=== PATIENT | male | born 1955 | race Caucasian/White ===

== ENCOUNTER 2017-04-10 20:29 | Emergency (ER) | payer MEDICAID ==
[2017-04-10 20:46] VITALS: BP 180/106
--- NOTE | 2017-04-10 20:59 | EDM.PDOC ---
ED HPI GENERAL MEDICAL PROBLEM - General Chief Complaint: General Stated Complaint: KIDNEY PROBLEMS Time Seen by Provider: 04/10/17 20:30 Source of Information: Reports: Patient, Family History Limitations: Reports: No Limitations - History of Present Illness INITIAL COMMENTS - FREE TEXT/NARRATIVE: This is a 62-year-old male. He saw his family doctor today who je some blood work on him and the blood work showed that his kidneys were working at 11%. According to the patient prior to this they were working at 28%. He is being followed by Dr. Barr at [facility] in [place] who is a screen maker and he called him tonight and told him to come to the ER and be transported down to [place] for evaluation. The patient states that been monitoring his kidneys for a couple of years now. He does have an artificial aortic valve and he is on Coumadin. His Coumadin level was 3.4 with this blood draw according to the patient as well. He has not been feeling very well lately and he did have a upper respiratory infection last week. He denies any significant nausea or vomiting. He has been urinating blood on and off for quite some time he tells me. I do not have access to the [facility] so I will re-draw some labs on him and then called down to [facility] in [place] and see what they would like me to do. The patient has not been on dialysis in the past. Abdomen Pain Score (Numeric/FACES): 3 - Related Data Allergies Allergy/AdvReac Type Severity Reaction Status Date / Time No Known Allergies Allergy Verified 11/21/14 18:05 Home Meds: Home Meds Albuterol Sulfate [Albuterol Sulfate HFA] 2 puff INH Q4H PRN 11/21/14 [History] Aspirin [Halfprin] 81 mg PO DAILY 11/21/14 [History] Magnesium Oxide 400 mg PO BID 11/21/14 [History] Metoprolol Succinate [Toprol XL] 100 mg PO DAILY 11/21/14 [History] Omeprazole [Prilosec] 20 mg PO DAILY 11/21/14 [History] Warfarin [Coumadin] 5 mg PO SUTUWETHFRSA 11/21/14 [History] Warfarin [Coumadin] 10 mg PO MO 11/21/14 [History] predniSONE [Prednisone] 10 mg PO DAILY 11/21/14 [History] Torsemide 50 mg PO DAILY 01/26/15 [History] Iron Polysaccharide Complex [Poly-Iron] 150 mg PO TID 04/10/17 [History] Mycophenolate Mofetil [Cellcept] 250 mg PO BID 04/10/17 [History] Simvastatin [Zocor] 40 mg PO BEDTIME 04/10/17 [History] Sodium Bicarbonate 650 mg PO BID 04/10/17 [History] Torsemide 50 mg PO ASDIRECTED 04/10/17 [History] Past Medical History Other Cardiovascular History: Aortic valve replacement. Other Gastrointestinal History: Esophageal ulcer Social & Family History - Tobacco Use Smoking Status *Q: Current Every Day Smoker Years of Tobacco use: 45 Used Tobacco, but Quit: No - Alcohol Use Days Per Week of Alcohol Use: 2 Number of Drinks Per Day: 2 Total Drinks Per Week: 4 - Recreational Drug Use Recreational Drug Use: No ED ROS GENERAL - Review of Systems Review Of Systems: See Below Constitutional: Reports: Weakness, Fatigue. Denies: Fever, Chills HEENT: Reports: No Symptoms Respiratory: Reports: Shortness of Breath. Denies: Cough Cardiovascular: Denies: Chest Pain Endocrine: Reports: No Symptoms GI/Abdominal: Denies: Abdominal Pain, Diarrhea, Nausea, Vomiting : Reports: Frequency, Hematuria Musculoskeletal: Reports: No Symptoms Skin: Reports: Other (Chronic skin excoriations) Neurological: Reports: No Symptoms Psychiatric: Reports: No Symptoms ED EXAM, GENERAL - Physical Exam Exam: See Below Exam Limited By: No Limitations General Appearance: Alert, No Apparent Distress, Other (He has a sallow skin appearance) Eye Exam: Bilateral Eye: Normal Inspection Ears: Normal External Exam Nose: Normal Inspection Throat/Mouth: Normal Inspection, Normal Lips, Normal Voice, No Airway Compromise Head: Normocephalic Neck: Supple Respiratory/Chest: No Respiratory Distress, Lungs Clear, Normal Breath Sounds Cardiovascular: Regular Rate, Rhythm, No Murmur, Other (He has the typical click of an artificial valve aortic) GI/Abdominal: Soft, Other (He has some mild lower abdominal soreness on palpation, he is rather large I cannot feel his organs or his bladder at this time, bowel sounds are positive but there are decreased) Back Exam: Full Range of Motion Extremities: Normal Inspection, Normal Range of Motion Neurological: Alert, Oriented Psychiatric: Normal Affect, Normal Mood Skin Exam: Warm, Dry Course - Vital Signs Last Recorded V/S: Last Vital Signs Temp 97.3 F 04/10/17 20:44 Pulse 80 04/10/17 20:44 Resp 20 04/10/17 20:44 BP 180/106 H 04/10/17 20:44 Pulse Ox 93 L 04/10/17 20:44 - Orders/Labs/Meds Labs: Laboratory Tests 04/10/17 04/10/17 04/10/17 Range/Units 21:10 21:10 21:10 WBC 7.80 (4.23-9.07) K/mm3 RBC 2.84 L (4.63-6.08) M/mm3 Hgb 9.1 L (13.7-17.5) gm/L Hct 28.7 L (40.1-51.0) % MCV 101.1 H (79.0-92.2) fl MCH 32.0 (25.7-32.2) pg MCHC 31.7 L (32.2-35.5) g/dl RDW Std Deviation 57.9 H (35.1-43.9) fL Plt Count 104 L (163-337) K/mm3 MPV 12.3 (9.4-12.3) fl Neut % (Auto) 82.3 H (34.0-67.9) % Lymph % (Auto) 6.4 L (21.8-53.1) % Carbon % (Auto) 6.2 (5.3-12.2) % Eos % (Auto) 4.5 (0.8-7.0) Baso % (Auto) 0.3 (0.1-1.2) % Neut # (Auto) 6.43 H (1.78-5.38) K/mm3 Lymph # (Auto) 0.50 L (1.32-3.57) K/mm3 Carbon # (Auto) 0.48 (0.30-0.82) K/mm3 Eos # (Auto) 0.35 (0.04-0.54) K/mm3 Baso # (Auto) 0.02 (0.01-0.08) K/mm3 Manual Slide Review Abnormal smear PT 40.4 H (8.0-13.0) SECONDS INR 3.43 Sodium 143 (136-145) mEq/L Potassium 4.6 (3.5-5.1) mEq/L Chloride 105 (98-107) mEq/L Carbon Dioxide 20 L (21-32) mEq/L Anion Gap 22.6 H (5-15) BUN 124 H (7-18) mg/dL Creatinine 11.3 H (0.7-1.3) mg/dL Est Cr Clr Drug Dosing 6.34 mL/min Estimated GFR (MDRD) 5 (>60) mL/min BUN/Creatinine Ratio 11.0 L (14-18) Glucose 174 H (80-115) mg/dL Calcium 7.1 L (8.5-10.1) mg/dL Magnesium 2.3 (1.8-2.4) mg/dl Total Bilirubin 0.5 (0.2-1.0) mg/dL AST 15 (15-37) U/L ALT 19 (16-63) U/L Alkaline Phosphatase 114 (46-116) U/L Total Protein 7.8 (6.4-8.2) g/dl Albumin 3.3 L (3.4-5.0) g/dl Globulin 4.5 gm/dL Albumin/Globulin Ratio 0.7 L (1-2) - Re-Assessments/Exams Free Text/Narrative Re-Assessment/Exam: 04/10/17 21:09 Bladder scan was done that showed anywhere from 60-90 mL only. 04/10/17 22:[address] Barr as well as Dr. Bernardo the hospitalist at [facility] in [place] and they accept the patient in transport for further evaluation and treatment. I also spoke to the family regarding the transport and regarding his lab work this evening. Departure - Departure Time of Disposition: 22:13 Disposition: DC/Tfer to [facility] 02 Condition: Fair Clinical Impression: Hypocalcemia, Hyperglycemia, Anticoagulated on Coumadin, H/O aortic valve replacement Acute renal failure Qualifiers: Acute renal failure type: unspecified Qualified Code(s): N17.9 - Acute kidney failure, unspecified Anemia in chronic kidney disease Qualifiers: Chronic kidney disease stage: stage 5, not on chronic dialysis Qualified Code(s ): N18.5 - Chronic kidney disease, stage 5; D63.1 - Anemia in chronic kidney disease; D63.1 - Anemia in chronic kidney disease - Discharge Information Referrals: Tito Barr MD [Primary Care Provider] - Forms: ED Department Discharge Additional Instructions: I spoke to Dr. Barr as well as Dr. Bernardo and they accept the patient in transport for further evaluation and treatment ED Communication - ED Communication Date/Time Date: 04/10/17 Time Called: 10:05 - Discussed Case With (1) Discussed Case With (1): Admitting Provider Person/s Notified (1): Dr. Bernardo (Excepts in transport to [facility])
== END 2017-04-10 23:05 ==
LOC: JD.ED 20:29 → SUPCPDRO 20:29 → JD.ED 23:05
DX: N17.9 Acute kidney failure, unspecified (principal); N18.9 Chronic kidney disease, unspecified; D63.1 Anemia in chronic kidney disease; E83.51 Hypocalcemia; R73.9 Hyperglycemia, unspecified; R31.0 Gross hematuria; F17.200 Nicotine dependence, unspecified, uncomplicated; Z95.2 Presence of prosthetic heart valve; Z79.82 Long term (current) use of aspirin; Z79.01 Long term (current) use of anticoagulants; Z79.899 Other long term (current) drug therapy
CPT/HCPCS: 36415; 80053; 81001; 83735; 85025; 85610; 99284; 99285

== ENCOUNTER 2017-05-11 16:23 | Emergency (ER) | payer MEDICAID, OTHER ==
[2017-05-11] MEDS ORDERED: HYDROmorphone 1 MG/ML Syringe IVPUSH ONE ×2 (17:13→17:58)
--- NOTE | 2017-05-11 20:20 | EDM.PDOC ---
ED HPI GENERAL MEDICAL PROBLEM - General Chief Complaint: Upper Extremity Injury/Pain Stated Complaint: FLUIDS NEEDED Time Seen by Provider: 05/11/17 20:14 Source of Information: Reports: Patient, Old Records (clinic records) History Limitations: Reports: No Limitations - History of Present Illness INITIAL COMMENTS - FREE TEXT/NARRATIVE: 62-year-old male presents for pain control for an ultrasound. Patient was seen in clinic. He had labs and an ultrasound (partially) performed. They were unable to perform the remainder of the ultrasound, the distal part his right arm , due to significant pain. Sent over to us for pain control. Patient denies any chest pain, shortness of breath, fevers, numbness or tingling. Patient reports that he first developed pain in the upper extremity on Thursday. He states that he has now developed swelling to the right wrist and elbow. Reports significant pain with any movement the right wrist and elbow. He does have a port on the right side. Patient is currently on Coumadin for history of an artificial aortic valve. INR checked in the clinic was 1.5. 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 He is currently on dialysis. Last dialysis was on Thursday. He is scheduled for dialysis tomorrow. He sees Dr. Barr for nephrology in [place] for his dialysis. Location: Reports: Upper Extremity, Right Right Arm Pain Score (Numeric/FACES): 6 - Related Data Allergies Allergy/AdvReac Type Severity Reaction Status Date / Time No Known Allergies Allergy Verified 05/11/17 17:02 Home Meds: Home Meds Albuterol Sulfate [Albuterol Sulfate HFA] 2 puff INH Q4H PRN 11/21/14 [History] Aspirin [Halfprin] 81 mg PO DAILY 11/21/14 [History] Magnesium Oxide 400 mg PO BID 11/21/14 [History] Metoprolol Succinate [Toprol XL] 100 mg PO DAILY 11/21/14 [History] Omeprazole [Prilosec] 20 mg PO DAILY 11/21/14 [History] Warfarin [Coumadin] 5 mg PO SUTUWETHFRSA 11/21/14 [History] Warfarin [Coumadin] 10 mg PO MO 11/21/14 [History] Iron Polysaccharide Complex [Poly-Iron] 150 mg PO TID 04/10/17 [History] Mycophenolate Mofetil [Cellcept] 250 mg PO BID 04/10/17 [History] Simvastatin [Zocor] 40 mg PO BEDTIME 04/10/17 [History] Allopurinol [Zyloprim] 300 mg PO DAILY 05/11/17 [History] Calcium Acetate [PhosLo] 667 mg PO DAILY 05/11/17 [History] Lisinopril 20 mg PO DAILY 05/11/17 [History] Past Medical History Cardiovascular History: Reports: Hypertension Other Cardiovascular History: Aortic valve replacement. Respiratory History: Reports: Asthma Gastrointestinal History: Reports: GERD Other Gastrointestinal History: Esophageal ulcer Genitourinary History: Reports: Acute Renal Failure Musculoskeletal History: Reports: Other (See Below) Other Musculoskeletal History: right ankle surgery Social & Family History - Tobacco Use Smoking Status *Q: Current Every Day Smoker Years of Tobacco use: 40 Packs/Tins Daily: 1 Used Tobacco, but Quit: No - Caffeine Use Caffeine Use: Reports: Coffee - Alcohol Use Days Per Week of Alcohol Use: 2 Number of Drinks Per Day: 2 Total Drinks Per Week: 4 - Recreational Drug Use Recreational Drug Use: No Review of Systems - Review of Systems Review Of Systems: See Below Respiratory: Denies: Shortness of Breath Cardiovascular: Denies: Chest Pain Musculoskeletal: Reports: Arm Pain (right elbow to wrist), Joint Swelling ( right wrist and elbow) Neurological: Denies: Numbness, Tingling ED EXAM, GENERAL - Physical Exam Exam: See Below Exam Limited By: No Limitations General Appearance: Alert, WD/WN, Mild Distress Throat/Mouth: Normal Inspection, Normal Voice, No Airway Compromise Respiratory/Chest: No Respiratory Distress, Lungs Clear, Normal Breath Sounds Cardiovascular: Normal Peripheral Pulses, Regular Rate, Rhythm, No Murmur Peripheral Pulses: 2+: Radial (R) Extremities: Slow Capillary Refill (>3 sec), Limited Range of Motion (unable to make a fist, flex/extend wrist or flex/extend right elbow), Other (dusky right hand and forearm) Neurological: Alert, Oriented, Normal Cognition Psychiatric: Normal Affect, Normal Mood Skin Exam: Warm, Dry, Increased Warmth (right hand and forearm) Course - Vital Signs Last Recorded V/S: Last Vital Signs Temp 36.7 C 05/11/17 20:37 Pulse 86 05/11/17 18:30 Resp 16 05/11/17 18:30 BP 115/76 05/11/17 18:30 Pulse Ox 88 L 05/11/17 18:30 - Orders/Labs/Meds Orders: Active Orders 24 hr Category Date Time Status Chest 1V Frontal [CR] Stat Exams 05/11/17 20:29 Taken Elbow Min 3V Rt [CR] Stat Exams 05/11/17 20:29 Taken Wrist Comp Min 3V Rt [CR] Stat Exams 05/11/17 20:29 Taken CULTURE BLOOD [BC] Stat Lab 05/11/17 19:24 Received CULTURE BLOOD [BC] Stat Lab 05/11/17 19:36 Received Blood Culture x2 Reflex Set [OM.PC] Stat Oth 05/11/17 18:55 Ordered Labs: Laboratory Tests 05/11/17 05/11/17 05/11/17 Range/Units 19:24 19:24 19:24 WBC 8.28 (4.23-9.07) K/mm3 RBC 3.54 L (4.63-6.08) M/mm3 Hgb 11.4 L (13.7-17.5) gm/L Hct 35.3 L (40.1-51.0) % MCV 99.7 H (79.0-92.2) fl MCH 32.2 (25.7-32.2) pg MCHC 32.3 (32.2-35.5) g/dl RDW Std Deviation 55.1 H (35.1-43.9) fL Plt Count 142 L (163-337) K/mm3 MPV 11.1 (9.4-12.3) fl Neutrophils % (Manual) 80 H (40-60) % Band Neutrophils % 0 (0-10) % Lymphocytes % (Manual) 10 L (20-40) % Atypical Lymphs % 0 % Monocytes % (Manual) 9 (2-10) % Eosinophils % (Manual) 1 (0.8-7.0) % Basophils % (Manual) 0 L (0.2-1.2) Platelet Estimate Adequate Plt Morphology Comment Normal RBC Morph Comment Normal Lactic Acid 0.7 (0.4-2.0) mmol/L C-Reactive Protein 17.4 H* (<1.0) mg/dL Meds: Medications Discontinued Medications Generic Name Dose Route Start Last Admin Trade Name Freq PRN Reason Stop Dose Admin Enoxaparin Sodium 100 mg 05/11/17 21:08 Lovenox SUBCUT 05/11/17 21:09 ONETIME ONE Hydromorphone HCl 1 mg 05/11/17 17:13 05/11/17 17:33 Dilaudid IVPUSH 05/11/17 17:14 1 mg ONETIME ONE Administration Hydromorphone HCl 1 mg 05/11/17 17:58 05/11/17 18:25 Dilaudid IVPUSH 05/11/17 17:59 1 mg ONETIME ONE Administration - Radiology Interpretation Free Text/Narrative:: Right upper extremity venous ultrasound: Duplex and color flow imaging was obtained of the right internal jugular, right internal jugular, right subclavian , right cephalic, right axillary and brachial, right basilic and right radial and ulnar veins. Findings: Thrombus is identified within the internal right jugular vein. Thrombus extends around a catheter with thrombus extending to the superior vena cava. Other veins show normal phasic flow, augmentation and compression. Impression: 1. Thrombus within the right internal jugular vein extending to the superior vena cava and extending around a venous catheter. 2. No other areas of thrombus is seen within the right upper extremity.Right upper extremity venous ultrasound: Duplex and color flow imaging was obtained of the right internal jugular, right internal jugular, right subclavian, right cephalic, right axillary and brachial, right basilic and right radial and ulnar veins. chest xray 1 view shows no acute intrathoracic process. xray of the right wrist shows no acute fractures or dislocations. Hardwear in place. xray of the right elbow shows no acute fractures or dislocations. - Re-Assessments/Exams Free Text/Narrative Re-Assessment/Exam: 05/11/17 18:30 Patient has received 2 mg IV Dilaudid thus far. Still continues to have significant pain and concerns over the ultrasound. I Asked Dr. Durham to come and evaluate the patient with me. He agrees that he needs the ultrasound. He also recommends repeating his CBC and CRP. Concern is infection versus clot. 05/11/17 21:30 Ultrasound report has returned. He has clot in the right IJ and into the SVC. CRP is elevated at 17. White blood cell count is within normal limits 8. Discussed the patient with Dr. Nam, hospitalist ammunition supervisor with [facility] in [place]. He agrees to accept the patient. He asked we give Lovenox 1 mg/kg subcutaneous. The patient would like to go by private vehicle. Dr. Nam does not feel this is appropriate and feels he should be sent by ambulance due to concern of developing a CVA or other complications from the clot. Departure - Departure Time of Disposition: 21:38 Disposition: DC/Tfer to [facility] 02 Condition: Serious Clinical Impression: Right jugular vein thrombosis, H/O aortic valve replacement, Anticoagulated on Coumadin, Chronic kidney disease - Discharge Information Referrals: Shima Cuellar PA [Primary Care Provider] - Forms: ED Department Discharge Additional Instructions: Patient go by ground ambulance to [facility]. Dr. Nam accepting. - My Orders Last 24 Hours: My Active Orders 05/11/17 18:55 Blood Culture x2 Reflex Set [OM.PC] Stat 05/11/17 19:24 CULTURE BLOOD [BC] Stat 05/11/17 19:36 CULTURE BLOOD [BC] Stat 05/11/17 20:29 Chest 1V Frontal [CR] Stat Elbow Min 3V Rt [CR] Stat Wrist Comp Min 3V Rt [CR] Stat - Assessment/Plan Last 24 Hours: My Active Orders 05/11/17 18:55 Blood Culture x2 Reflex Set [OM.PC] Stat 05/11/17 19:24 CULTURE BLOOD [BC] Stat 05/11/17 19:36 CULTURE BLOOD [BC] Stat 05/11/17 20:29 Chest 1V Frontal [CR] Stat Elbow Min 3V Rt [CR] Stat Wrist Comp Min 3V Rt [CR] Stat
[2017-05-11] MEDS ORDERED: Enoxaparin 100 MG/1 ML Syringe SUBCUT ONE (21:08)
[2017-05-11 21:18] VITALS: BP 131/83
[2017-05-11] MEDS ORDERED: Sodium Chloride 0.9% 1,000 ML IV ONE (21:26)
--- NOTE | 2017-05-12 08:05 | CR ---
Right elbow: Four views of the right elbow were obtained. Comparison: No prior elbow exam. Bone densities are seen on the lateral view above the radial head. Findings presumably are due to loose bodies. Joint space narrowing is noted within the radiocapitellar joint. Bony structures are osteopenic. No acute abnormality is definitely appreciated. Mild soft tissue calcifications are seen which appear to be mostly vascular in etiology. Impression: 1. Joint space narrowing and osteopenia. Possible loose bodies and other incidental findings. Diagnostic code #3
--- NOTE | 2017-05-12 08:05 | CR ---
Chest: Portable view of the chest was obtained. Comparison: Prior chest x-ray of 11/21/14. Heart size is normal. Tortuous thoracic aorta is seen. Sternotomy wires are noted. Right sided dialysis catheter is seen. Lungs are clear. Impression: 1. Nothing acute is identified on portable chest x-ray. Diagnostic code #1
--- NOTE | 2017-05-12 08:05 | CR ---
Right wrist: Four views of the right wrist are obtained utilizing portable technique. Comparison: No prior study. Soft tissue swelling is identified. Two screws are identified within the distal ulna affixing an old healed fracture. Fairly severe degenerative change is noted within the CMC joint of the thumb. Mild joint space narrowing is noted off the distal navicular bone. Bony structures are osteopenic. No acute fracture or dislocation is identified. Impression: 1. Fairly severe degenerative change at the CMC joint of the thumb. 2. Soft tissue swelling and other incidental findings. No acute bony abnormality is identified. Diagnostic code #2
== END 2017-05-11 21:50 ==
LOC: JD.ED 16:23
DX: I82.C11 Acute embolism and thrombosis of right internal jugular vein (principal); F17.210 Nicotine dependence, cigarettes, uncomplicated; I12.9 Hypertensive chronic kidney disease with stage 1 through stage 4 chronic kidney disease, or unspecified chronic kidney disease; N18.9 Chronic kidney disease, unspecified; J45.909 Unspecified asthma, uncomplicated; Z95.2 Presence of prosthetic heart valve; Z79.01 Long term (current) use of anticoagulants; Z79.899 Other long term (current) drug therapy; Z99.2 Dependence on renal dialysis
CPT/HCPCS: 36415; 71010; 73080; 73110; 83605; 85025; 86140; 87040; 96372; 96374; 96376; 99285; J1170; J1650; J7040; 99284

== ENCOUNTER 2020-07-15 13:31 | Emergency (ER) | payer MEDICARE, BC ==
--- NOTE | 2020-07-15 14:09 | EDM.PDOC ---
ED HPI GENERAL MEDICAL PROBLEM - General Chief Complaint: General Stated Complaint: DIZZY Time Seen by Provider: 07/15/20 13:38 Source of Information: Reports: Patient, RN Notes Reviewed History Limitations: Reports: No Limitations - History of Present Illness INITIAL COMMENTS - FREE TEXT/NARRATIVE: Patient is a 65-year-old male presenting to the emergency department with compl aints of orthostasis which has been occurring since he dialyzed on Thursday. Patient is an end-stage renal disease and dialyzes Wednesdays and Fridays. States after dialysis on Thursday is when his symptoms began. He is not dizzy when lying down, however, upon standing and ambulating he becomes quite dizzy and has to sit down after a couple steps. He has not fallen or had any syncopal episodes. He verbalizes that they were not able to remove as much fluid from them as they normally do on Thursday due to low blood pressures. He states that he thinks he took off a pound or a pound and a half with a normal intake of 2 to 2-1/2 pounds of fluid. He has had low hemoglobins in the past which required blood transfusions and he is concerned that this could be the cause of his symptoms right now. States he does feel short of breath but this is somewhat chronic for him. He does have a history of asthma and states he used his albuterol inhaler shortly before coming to the ER. It did help with his shortness of breath. He denies any chest pain or headaches. - Related Data Allergies Allergy/AdvReac Type Severity Reaction Status Date / Time No Known Allergies Allergy Verified 07/15/20 13:45 Home Meds: Home Meds Albuterol Sulfate [Albuterol Sulfate HFA] 2 puff INH Q4H PRN 11/21/14 [History] Aspirin [Halfprin] 81 mg PO DAILY 11/21/14 [History] Magnesium Oxide 400 mg PO BID 11/21/14 [History] Metoprolol Succinate [Toprol XL] 100 mg PO DAILY 11/21/14 [History] Omeprazole [Prilosec] 20 mg PO DAILY 11/21/14 [History] Warfarin [Coumadin] 5 mg PO SUTUWETHFRSA 11/21/14 [History] Simvastatin [Zocor] 40 mg PO BEDTIME 04/10/17 [History] Allopurinol [Zyloprim] 300 mg PO DAILY 05/11/17 [History] Calcium Acetate [PhosLo] 667 mg PO DAILY 05/11/17 [History] Lisinopril 20 mg PO DAILY 05/11/17 [History] Metoprolol Succinate [Toprol XL] 12.5 mg PO DAILY #30 tab.er 07/15/20 [Rx] Past Medical History HEENT History: Reports: Impaired Vision Cardiovascular History: Reports: Hypertension Other Cardiovascular History: Aortic valve replacement. Respiratory History: Reports: Asthma Gastrointestinal History: Reports: GERD Other Gastrointestinal History: Esophageal ulcer Genitourinary History: Reports: Acute Renal Failure Musculoskeletal History: Reports: Other (See Below) Other Musculoskeletal History: right ankle surgery - Infectious Disease History Infectious Disease History: Reports: Chicken Pox - Past Surgical History Cardiovascular Surgical History: Reports: Valve Replacement Other Cardiovascular Surgeries/Procedures: 1995, 2018 Social & Family History - Tobacco Use Tobacco Use Status *Q: Current Every Day Tobacco User Years of Tobacco use: 50 Packs/Tins Daily: 1 - Caffeine Use Caffeine Use: Reports: Coffee - Recreational Drug Use Recreational Drug Use: No ED ROS GENERAL - Review of Systems Review Of Systems: See Below Constitutional: Reports: Weakness. Denies: Fever, Chills HEENT: Reports: No Symptoms Respiratory: Reports: Shortness of Breath. Denies: Cough Cardiovascular: Reports: Lightheadedness. Denies: Chest Pain, Palpitations, Syncope Endocrine: Reports: No Symptoms GI/Abdominal: Reports: No Symptoms : Reports: No Symptoms Musculoskeletal: Reports: No Symptoms Skin: Reports: No Symptoms Neurological: Reports: Dizziness. Denies: Headache Psychiatric: Reports: No Symptoms Hematologic/Lymphatic: Reports: No Symptoms Immunologic: Reports: No Symptoms ED EXAM, GENERAL - Physical Exam Exam: See Below General Appearance: Alert, WD/WN, No Apparent Distress Respiratory/Chest: No Respiratory Distress, Lungs Clear, No Accessory Muscle Use, Chest Non-Tender, Wheezing (faint expiratory) Cardiovascular: Normal Peripheral Pulses, Regular Rate, Rhythm, No Gallop, No JVD, No Murmur, No Rub, Other (trace BLE edema) GI/Abdominal: Normal Bowel Sounds, Soft, Non-Tender, No Organomegaly, No Di stention, No Abnormal Bruit, No Mass Neurological: Alert, Oriented, CN II-XII Intact, Normal Cognition, Normal Gait, Normal Reflexes, No Motor/Sensory Deficits Psychiatric: Normal Affect, Normal Mood Skin Exam: Warm, Dry, Intact, Normal Color, No Rash Course - Vital Signs Last Recorded V/S: Last Vital Signs Temp 98.5 F 07/15/20 18:35 Pulse 56 L 07/15/20 18:35 Resp 21 H 07/15/20 18:35 BP 86/53 L 07/15/20 18:35 Pulse Ox 93 L 07/15/20 18:35 - Orders/Labs/Meds Orders: Active Orders 24 hr Category Date Time Status Chest 1V Frontal [CR] Stat Exams 07/15/20 14:02 Taken EKG 12 Lead [EK] Stat Ther 07/15/20 13:46 Ordered Labs: Laboratory Tests 07/15/20 07/15/20 07/15/20 Range/Units 13:54 13:54 13:54 WBC (4.23-9.07) K/mm3 RBC (4.63-6.08) M/mm3 Hgb (13.7-17.5) gm/dl Hct (40.1-51.0) % MCV (79.0-92.2) fl MCH (25.7-32.2) pg MCHC (32.2-35.5) g/dl RDW Std Deviation (35.1-43.9) fL Plt Count (163-337) K/mm3 MPV (9.4-12.3) fl Neut % (Auto) (34.0-67.9) % Lymph % (Auto) (21.8-53.1) % [place] % (Auto) (5.3-12.2) % Eos % (Auto) (0.8-7.0) Baso % (Auto) (0.1-1.2) % Neut # (Auto) (1.78-5.38) K/mm3 Lymph # (Auto) (1.32-3.57) K/mm3 [place] # (Auto) (0.30-0.82) K/mm3 Eos # (Auto) (0.04-0.54) K/mm3 Baso # (Auto) (0.01-0.08) K/mm3 Manual Slide Review PT 18.5 H (9.7-12.0) SECONDS INR 1.75 Sodium (136-145) mEq/L Potassium (3.5-5.1) mEq/L Chloride (98-107) mEq/L Carbon Dioxide (21-32) mEq/L Anion Gap (5-15) BUN (7-18) mg/dL Creatinine (0.7-1.3) mg/dL Est Cr Clr Drug Dosing mL/min Estimated GFR (MDRD) (>60) mL/min BUN/Creatinine Ratio (14-18) Glucose (80-115) mg/dL Calcium (8.5-10.1) mg/dL Magnesium (1.8-2.4) mg/dl Total Bilirubin (0.2-1.0) mg/dL AST (15-37) U/L ALT (16-63) U/L Alkaline Phosphatase (46-116) U/L Troponin I 0.100 H* (0.00-0.056) ng/mL C-Reactive Protein (<1.0) mg/dL NT-Pro-B Natriuret Pep 75393 H (0-125) pg/mL Total Protein (6.4-8.2) g/dl Albumin (3.4-5.0) g/dl Globulin gm/dL Albumin/Globulin Ratio (1-2) 07/15/20 07/15/20 Range/Units 13:57 13:57 WBC 6.07 (4.23-9.07) K/mm3 RBC 2.32 L (4.63-6.08) M/mm3 Hgb 8.1 L (13.7-17.5) gm/dl Hct 27.9 L (40.1-51.0) % MCV 120.3 H D (79.0-92.2) fl MCH 34.9 H (25.7-32.2) pg MCHC 29.0 L (32.2-35.5) g/dl RDW Std Deviation 74.6 H (35.1-43.9) fL Plt Count 80 L (163-337) K/mm3 MPV 12.1 (9.4-12.3) fl Neut % (Auto) 77.1 H (34.0-67.9) % Lymph % (Auto) 11.2 L (21.8-53.1) % [place] % (Auto) 6.8 (5.3-12.2) % Eos % (Auto) 3.8 (0.8-7.0) Baso % (Auto) 0.3 (0.1-1.2) % Neut # (Auto) 4.68 (1.78-5.38) K/mm3 Lymph # (Auto) 0.68 L (1.32-3.57) K/mm3 [place] # (Auto) 0.41 (0.30-0.82) K/mm3 Eos # (Auto) 0.23 (0.04-0.54) K/mm3 Baso # (Auto) 0.02 (0.01-0.08) K/mm3 Manual Slide Review Abnormal smear PT (9.7-12.0) SECONDS INR Sodium 144 (136-145) mEq/L Potassium 4.5 (3.5-5.1) mEq/L Chloride 102 (98-107) mEq/L Carbon Dioxide 30 (21-32) mEq/L Anion Gap 16.5 H (5-15) BUN 48 H (7-18) mg/dL Creatinine 7.7 H (0.7-1.3) mg/dL Est Cr Clr Drug Dosing 8.94 mL/min Estimated GFR (MDRD) 7 (>60) mL/min BUN/Creatinine Ratio 6.2 L (14-18) Glucose 107 (80-115) mg/dL Calcium 8.7 (8.5-10.1) mg/dL Magnesium 2.0 (1.8-2.4) mg/dl Total Bilirubin 0.9 (0.2-1.0) mg/dL AST 24 (15-37) U/L ALT 27 (16-63) U/L Alkaline Phosphatase 135 H (46-116) U/L Troponin I (0.00-0.056) ng/mL C-Reactive Protein 5.7 H* (<1.0) mg/dL NT-Pro-B Natriuret Pep (0-125) pg/mL Total Protein 6.4 (6.4-8.2) g/dl Albumin 3.0 L (3.4-5.0) g/dl Globulin 3.4 gm/dL Albumin/Globulin Ratio 0.9 L (1-2) Meds: Medications Discontinued Medications Generic Name Dose Route Start Last Admin Trade Name Freq PRN Reason Stop Dose Admin Albumin Human 12.5 gm in 50 mls @ 100 mls/hr 02/14/21 15:05 07/15/20 16:02 Flexbumin 25% IV 07/15/20 15:34 100 mls/hr ONETIME ONE Administration Albumin Human 12.5 gm in 50 mls @ 100 mls/hr 07/15/20 15:06 07/15/20 16:00 Flexbumin 25% IV 07/15/20 15:35 100 mls/hr ONETIME ONE Administration Sodium Chloride 150 mls @ 500 mls/hr 07/15/20 17:18 07/15/20 17:45 Normal Saline IV 07/15/20 17:35 500 mls/hr NOW STA Administration - Re-Assessments/Exams Free Text/Narrative Re-Assessment/Exam: 07/15/20 15:39 Hematology was significant for hemoglobin low at 8.1, anion gap 16.5, BUN 48, creatinine 7.7, troponin 0 0.100, CRP 5.7, proBNP 22,837, albumin low at 3.0. Chest x-ray shows some mild pulmonary vascular congestion. Patient is wheezy to auscultation. Patient continues to be hypotensive with last blood pressure being 89/50. Given that he has signs of congestive heart failure but is also hypotensive, case was discussed with the asphalt paving foreman on-call at [facility], Dr. Gagnon. His recommendation was to have the patient stop his lisinopril and decrease metoprolol XL to 12.5 mg daily. He also recommended that we give him a albumin 25 g in 100 mils now. If his blood pressures are still low, he states that we could give him 150 mils of normal saline but no more than that. He recommends that he monitor his blood pressures at home and report to hemodialysis as scheduled tomorrow. They will recheck his blood pressure at that time and consult with Dr. Navarro if needed. Discussed this plan with the patient and his daughter and they are in agreement. I have ordered albumin 25 g in 100 mL to be given now. Patient has already taken his lisinopril and metoprolol this morning, therefore he will begin the changes tomorrow. 07/15/20 18:03 Patient is feeling somewhat better after the albumin. He was able to get up and walk with minimal dizziness. States it is better than it was before coming to the ER but he does still feel little dizzy. Blood pressure was 85/49. We will give him the 150 mils of normal saline as recommended by Dr. Gagnon and then plan to discharge him home with follow-up with dialysis tomorrow morning. 07/15/20 18:06 Patient has completed the 150 mill infusion of normal saline. Blood pressure 86/53. We will discharge him home with instructions to stop lisinopril, change metoprolol to 12.5 mg daily, and follow-up with dialysis as scheduled tomorrow. He is in agreement with this plan. Discharge instructions as documented. Departure - Departure Time of Disposition: 18:04 Disposition: Home, Self-Care 01 Condition: Good Clinical Impression: Hypoalbuminemia Hypotension Qualifiers: Hypotension type: hemodialysis-associated hypotension Qualified Code(s): I95.3 - Hypotension of hemodialysis Chronic kidney disease Qualifiers: Chronic kidney disease stage: on chronic dialysis Qualified Code(s): N18.6 - End stage renal disease Anemia in chronic kidney disease Qualifiers: Chronic kidney disease stage: stage 5, not on chronic dialysis Qualified Code(s): N18.5 - Chronic kidney disease, stage 5 - Discharge Information *PRESCRIPTION DRUG MONITORING PROGRAM REVIEWED*: No *COPY OF PRESCRIPTION DRUG MONITORING REPORT IN PATIENT LEONARDA: No Prescriptions: Metoprolol Succinate [Toprol XL] 12.5 mg PO DAILY #30 tab.er Instructions: Hypotension, [id number], End-Stage Kidney Disease Referrals: Kentrell Kraft MD [Primary Care Provider] - Tito Barr MD [Ordering Only Provider] - Forms: ED Department Discharge Additional Instructions: You were seen in the emergency department today for dizziness upon standing since Thursday. Work-up in the ER included blood work, EKG of your heart, and chest x-ray. Your case was discussed with the asphalt paving foreman on-call at [facility], Dr. Gagnon. Your blood pressure was found to be low, however, since you have end-stage kidney failure and there are signs that you may have congestive heart failure, it was decided that giving you a significant amount of fluid would not be in your best interest. Dr. Gagnon recommended that you received albumin in the emergency department, that you stop your lisinopril blo od pressure medication and that your metoprolol be decreased to 12.5 mg daily. While in the ER, you did receive the infusion of albumin. Recommend that you do not take your lisinopril any longer. Also stop your metoprolol 100 mg daily and take the metoprolol 12.5 mg daily tab that has been prescribed to you. This prescription was sent to [facility]. Report to dialysis tomorrow as scheduled. They should reevaluate your blood pressure and consult with Dr. Barr for orders as needed. I would also recommend that you check your blood pressures at home daily and keep a log of these readings. If you experience any new or worsening symptoms of concern, please do not hesitate to return to the emergency department for reevaluation. Sepsis Event Note (ED) - Evaluation Sepsis Screening Result: No Definite Risk - Focused Exam Vital Signs: Vital Signs Temp Pulse Resp BP Pulse Ox 07/15/20 18:35 98.5 F 56 L 21 H 86/53 L 93 L 07/15/20 18:11 86/53 L 07/15/20 13:42 97.4 F 66 18 83/50 L 95 - My Orders Last 24 Hours: My Active Orders 07/15/20 13:46 EKG 12 Lead [EK] Stat 07/15/20 14:02 Chest 1V Frontal [CR] Stat - Assessment/Plan Last 24 Hours: My Active Orders 07/15/20 13:46 EKG 12 Lead [EK] Stat 07/15/20 14:02 Chest 1V Frontal [CR] Stat
[2020-07-15] MEDS ORDERED: Albumin 25% 12.5 GM/50 ML BAG IV ONE ×2 (15:05→15:06)
[2020-07-15 18:12] VITALS: BP 86/53
[2020-07-15 18:50] VITALS: PULSE 56
--- NOTE | 2020-07-16 12:34 | CR ---
Chest: Portable view of the chest was obtained. Comparison: Prior chest x-ray of 05/11/17. Heart is enlarged. Right-sided catheter is seen. Previous sternotomy is noted. Pulmonary vessels are congested. Lungs otherwise are clear. Bony structures are grossly intact. Impression: 1. Findings suspicious for mild CHF. 2. Other findings as noted above. Diagnostic code #3 MTDD
== END 2020-07-15 18:35 | disposition home or self-care (01) ==
LOC: JD.ED 13:31
DX: I12.0 Hypertensive chronic kidney disease with stage 5 chronic kidney disease or end stage renal disease (principal); N18.6 End stage renal disease; I95.3 Hypotension of hemodialysis; D63.1 Anemia in chronic kidney disease; E88.09 Other disorders of plasma-protein metabolism, not elsewhere classified; J45.909 Unspecified asthma, uncomplicated; K21.9 Gastro-esophageal reflux disease without esophagitis; Z72.0 Tobacco use; Z79.01 Long term (current) use of anticoagulants; Z79.899 Other long term (current) drug therapy; Z99.2 Dependence on renal dialysis; Z79.82 Long term (current) use of aspirin; R06.02 Shortness of breath
CPT/HCPCS: 36415; 71045; 80053; 83735; 83880; 84484; 85025; 85610; 86140; 93005; 96365; 99285; J7030; P9047; 99284

== ENCOUNTER 2020-10-15 12:16 | Emergency (ER) | payer MEDICARE, BC ==
--- NOTE | 2020-10-15 12:49 | EDM.PDOC ---
<Jose Antonio Durham - Last Filed: 10/15/20 18:09> ED HPI GENERAL MEDICAL PROBLEM - General Chief Complaint: Cardiovascular Problem Stated Complaint: SENT BY [facility] FOR EVAL ON LABS Time Seen by Provider: 10/15/20 12:47 Source of Information: Reports: Patient, RN Notes Reviewed, Other (dialysis nurse) - History of Present Illness INITIAL COMMENTS - FREE TEXT/NARRATIVE: 65 yr old male sent over with hgb of 6.5, elevated PT INR. PT, INR elevated at 7.9/7.71. Has had "bloody nose off and on yesterday and again this morning, currently not bleeding at time of exam. No chest or abd pain. has not been aware of dark or bloody stool. No nausea or vomiting. Just finished his Thursday dialysis run. States he last needed a transfusion about 4 to 5 months ago. Has been a dialysis pt for about 2 yrs. Is on coumadin with hx of valve replacement about 3 yrs ago. - Related Data Allergies Allergy/AdvReac Type Severity Reaction Status Date / Time allopurinol Allergy Severe Cannot Verified 10/15/20 12:31 Remember chlorhexidine Allergy Severe Itching Verified 10/15/20 12:31 Home Meds: Home Meds Albuterol Sulfate [Albuterol Sulfate HFA] 2 puff INH Q4H PRN 11/21/14 [History] Aspirin [Halfprin] 81 mg PO DAILY 11/21/14 [History] Magnesium Oxide 400 mg PO DAILY 11/21/14 [History] Metoprolol Succinate [Toprol XL] 50 mg PO DAILY 11/21/14 [History] Omeprazole [Prilosec] 20 mg PO DAILY 11/21/14 [History] Allopurinol [Zyloprim] 300 mg PO DAILY PRN 05/11/17 [History] Calcium Acetate [PhosLo] 667 mg PO TIDMEALS 05/11/17 [History] Calcium Carbonate [Tums] 500 mg PO QID 10/15/20 [History] Midodrine 10 mg PO MOWEFR 10/15/20 [History] Montelukast Sodium [Singulair] 10 mg PO DAILY PRN 10/15/20 [History] Ondansetron [Zofran] 4 mg IV Q4H PRN 10/15/20 [History] Warfarin Sodium 7.5 mg PO SUTUWETHSA 10/15/20 [History] Warfarin Sodium 10 mg PO MOFR 10/15/20 [History] Past Medical History HEENT History: Reports: Impaired Vision Cardiovascular History: Reports: Hypertension Other Cardiovascular History: Aortic valve replacement. Respiratory History: Reports: Asthma Gastrointestinal History: Reports: GERD Other Gastrointestinal History: Esophageal ulcer Genitourinary History: Reports: Acute Renal Failure Musculoskeletal History: Reports: Other (See Below) Other Musculoskeletal History: right ankle surgery - Infectious Disease History Infectious Disease History: Reports: Chicken Pox - Past Surgical History Cardiovascular Surgical History: Reports: Valve Replacement Other Cardiovascular Surgeries/Procedures: 1995, 2019 Social & Family History - Caffeine Use Caffeine Use: Reports: Coffee ED ROS GENERAL - Review of Systems Review Of Systems: See Below Constitutional: Denies: Fever, Chills, Diaphoresis HEENT: Reports: Other (mouth feels dry, nose bleed yesterday and again today) Respiratory: Reports: Shortness of Breath (mild, chronic) Cardiovascular: Denies: Chest Pain Endocrine: Reports: Fatigue GI/Abdominal: Reports: Decreased Appetite. Denies: Abdominal Pain, Diarrhea, Hematochezia, Melena, Vomiting Musculoskeletal: Denies: Shoulder Pain, Arm Pain, Back Pain Skin: Reports: Pallor, Bruising Neurological: Reports: Dizziness, Weakness (generalized). Denies: Trouble Speaking ED EXAM, GENERAL - Physical Exam Exam: See Below General Appearance: Alert, No Apparent Distress Nose: Other (has some tissue in his R nares, no active bleeding at time of exam) Throat/Mouth: Other (dry mouth, no blood) Head: Atraumatic Neck: Supple, Other (No JVD) Respiratory/Chest: Respiratory Distress (mild tachypnea). No: Rales, Rhonchi, Wheezing Cardiovascular: Regular Rate, Rhythm GI/Abdominal: Soft, Non-Tender Extremities: Normal Inspection, Pedal Edema (very mild bilat). No: Leg Pain, Redness Neurological: Alert, Oriented, No Motor/Sensory Deficits Skin Exam: Warm, Dry, Ecchymosis (L arm), Pallor Course - Re-Assessments/Exams Free Text/Narrative Re-Assessment/Exam: 10/15/20 18:13 Labs drawn this Am before or during dialysis showed hgb of 6.1, PT/INR 79.3, 7.71. rectal exam showed a very small amt of dark stool heme pos. Have given Vit. K 5 mg IV. Have had him type and crossed for 2 units PRBCs. I did ask him if he felt like he wanted to be admitted to the hospital (which would mean transfer to [facility]) for further work up of possible GI bleed or prefer we give him IV Vit K, transfuse blood with liklihood that he will do well once his INR is stablized. He did have the heme pos stool at time of initial exam but he likely has swallowed some blood from his epistaxis yesterday and again this morning. He prefers we give him blood here. It is now change of shift. Have transferred care to Dr Sanz. He has had his first unit. Will finish getting 2nd unit in about 3hrs. Departure - Departure Disposition: Home, Self-Care 01 Clinical Impression: Epistaxis, Elevated INR Anemia Qualifiers: Anemia type: unspecified type Qualified Code(s): D64.9 - Anemia, unspecified Referrals: Tito Barr MD [Primary Care Provider] - Kentrell Kraft MD [Physician] - Forms: ED Department Discharge Additional Instructions: You were seen in the emergency room after lab work found your hemoglobin to be severely depressed in the 6-range and your INR to be too high at 7.71. You were transfused 2 units of packed red blood cells and given 5 mg of vitamin K in the ER. Your repeat hemoglobin is now 7.4, and your INR 2.43. Admission to the hospital was offered, but declined. We recommend that you follow-up with your PCP, Dr. Kentrell Kraft, in the morning. If any other problems, please do not hesitate to return to the ER. Sepsis Event Note (ED) - Evaluation Sepsis Screening Result: No Definite Risk <Cali Sanz - Last Filed: 10/15/20 21:21> Course - Vital Signs Last Recorded V/S: Last Vital Signs Temp 36.1 C 10/15/20 20:17 Pulse 70 10/15/20 20:17 Resp 16 10/15/20 20:17 BP 82/45 L 10/15/20 20:17 Pulse Ox 95 10/15/20 20:17 - Orders/Labs/Meds Orders: Active Orders 24 hr Category Date Time Status Peripheral IV Care [RC] . DIRECTED Care 10/15/20 13:05 Active Sodium Chloride 0.9% [Normal Saline] 250 ml Med 10/15/20 15:45 Active IV ASDIRECTED Sodium Chloride 0.9% [Saline Flush] Med 10/15/20 13:05 Active 10 ml FLUSH ASDIRECTED PRN Peripheral IV Insertion Adult [OM.PC] Stat Ot 10/15/20 13:04 Ordered Transfuse Red Blood Cells [COMM] Stat Ot 10/15/20 13:05 Ordered Medication Orders Sodium Chloride (Normal Saline) 250 mls @ 100 mls/hr IV ASDIRECTED ARTIE Last Admin: 10/15/20 15:35 Dose: 100 mls/hr Documented by: DONA Sodium Chloride (Sodium Chloride 0.9% 10 Ml Syringe) 10 ml FLUSH ASDIRECTED PRN PRN Reason: Keep Vein Open Last Admin: 10/15/20 14:17 Dose: 10 ml Documented by: CRISTY Labs: Laboratory Tests 10/15/20 10/15/20 10/15/20 Range/Units 13:30 20:40 20:40 Hgb 7.4 L (13.7-17.5) gm/dl Hct 24.4 L (40.1-51.0) % PT 25.6 H D (9.7-12.0) SECONDS INR 2.43 Blood Type O NEGATIVE Gel Antibody Screen Negative Crossmatch See Detail Meds: Medications Generic Name Dose Route Start Last Admin Trade Name Freq PRN Reason Stop Dose Admin Sodium Chloride 250 mls @ 100 mls/hr 10/15/20 15:45 10/15/20 15:35 Normal Saline IV 100 mls/hr ASDIRECTED ARTIE Administration Sodium Chloride 10 ml 10/15/20 13:05 10/15/20 14:17 Sodium Chloride 0.9% 10 Ml Syringe FLUSH 10 ml ASDIRECTED PRN Administration Keep Vein Open Discontinued Medications Generic Name Dose Route Start Last Admin Trade Name Freq PRN Reason Stop Dose Admin Phytonadione 5 mg/ Sodium 50.5 mls @ 100 mls/hr 10/15/20 13:05 10/15/20 13:50 Chloride IV 10/15/20 13:35 Not Given NOW ONE Phytonadione 5 mg/ Sodium 50.5 mls @ 100 mls/hr 10/15/20 13:45 10/15/20 13:48 Chloride IV 10/15/20 14:15 100 mls/hr NOW ONE Administration Sodium Chloride Confirm 10/15/20 15:02 10/15/20 15:46 Normal Saline Administered 10/15/20 15:03 Not Given Dose 250 mls @ as directed .ROUTE .[facility] - Re-Assessments/Exams Free Text/Narrative Re-Assessment/Exam: 10/15/20 20:46 The second unit of PRBCs has finished infusing. An H/H and INR have been ordered. 10/15/20 21:14 The patient's H/H is now up to 7.4/24.4, with an INR down to 2.43. 10/15/20 21:17 Test results discussed with the patient. He had indicated to Dr. Durham earlier that he did not want to be admitted, and he still feels that way. I w ill therefore discharge him home. The patient agreed to follow-up with Dr. Kraft tomorrow morning. Departure - Departure Time of Disposition: 21:18 Sepsis Event Note (ED) - Focused Exam Vital Signs: Vital Signs Temp Temp Pulse Resp BP Pulse Ox 10/15/20 20:17 36.1 C 70 16 82/45 L 95 10/15/20 18:33 36.2 C 67 16 80/43 L 91 L 10/15/20 18:15 36.3 C 71 18 80/44 L 10/15/20 16:07 36.5 C 70 18 74/46 L 96 10/15/20 15:52 36.4 C 66 18 65/44 L 91 L 10/15/20 15:30 36.1 C 73 14 76/41 L 10/15/20 12:28 36.1 C 68 30 H 75/47 L
[2020-10-15] MEDS ORDERED: Sodium Chloride 0.9% 10 ML Syringe FLUSH PRN (13:05)
[2020-10-15] MEDS ORDERED: Phytonadione 5 MG in Sodium Chloride 0.9% 50 ML IV ONE ×2 (13:05→13:45)
[2020-10-15] MEDS: Sodium Chloride 0.9% 250 ML ONE ×2 (15:30→15:46)
[2020-10-15] MEDS ORDERED: Sodium Chloride 0.9% 250 ML IV SCH (15:45)
[2020-10-15 20:18] VITALS: BP 82/45; PULSE 70
== END 2020-10-15 21:27 | disposition home or self-care (01) ==
LOC: JD.ED 12:16
DX: Z51.81 Encounter for therapeutic drug level monitoring (principal); R04.0 Epistaxis; Z79.01 Long term (current) use of anticoagulants
CPT/HCPCS: 36415; 36430; 85014; 85018; 85610; 86850; 86900; 86901; 86922; 96365; 99284; J3430; J7050; P9016; 99283

== ENCOUNTER 2021-01-06 13:52 | Emergency (ER) | payer MEDICARE, BC ==
--- NOTE | 2021-01-06 14:04 | EDM.PDOC ---
ED HPI GENERAL MEDICAL PROBLEM - General Chief Complaint: Gastrointestinal Problem Stated Complaint: [facility] Time Seen by Provider: 01/06/21 14:04 - History of Present Illness INITIAL COMMENTS - FREE TEXT/NARRATIVE: 65-year-old male brought in with 2-day history of GI bleeding. Apparently the patient's been passing blood per rectum several times daily over the last 2 days. Patient is on hemodialysis for chronic kidney disease. He has required multiple transfusions in the past. He is a little confused and slow to respond but overall answers questions reasonably well he denies chest pain or chest pressure at this point. He generally just does not feel well. His last round of hemodialysis was on Thursday. EMS brought him in and had a hard time getting a accurate O2 saturation on him in the extremities. He is satting reasonably well on room air with an earlobe monitor. - Related Data Allergies Allergy/AdvReac Type Severity Reaction Status Date / Time allopurinol Allergy Severe Cannot Verified 01/06/21 14:07 Remember chlorhexidine Allergy Severe Itching Verified 01/06/21 14:07 Home Meds: Home Meds Albuterol Sulfate [Albuterol Sulfate HFA] 2 puff INH Q4H PRN 11/21/14 [History] Aspirin [Halfprin] 81 mg PO DAILY 11/21/14 [History] Magnesium Oxide 400 mg PO DAILY 11/21/14 [History] Metoprolol Succinate [Toprol XL] 50 mg PO DAILY 11/21/14 [History] Omeprazole [Prilosec] 20 mg PO DAILY 11/21/14 [History] Allopurinol [Zyloprim] 300 mg PO DAILY PRN 05/11/17 [History] Calcium Acetate [PhosLo] 667 mg PO TIDMEALS 05/11/17 [History] Calcium Carbonate [Tums] 500 mg PO QID 10/15/20 [History] Midodrine 10 mg PO MOWEFR 10/15/20 [History] Montelukast Sodium [Singulair] 10 mg PO DAILY PRN 10/15/20 [History] Ondansetron [Zofran] 4 mg IV Q4H PRN 10/15/20 [History] Warfarin Sodium 7.5 mg PO SUTUWETHSA 10/15/20 [History] Warfarin Sodium 10 mg PO MOFR 10/15/20 [History] Past Medical History HEENT History: Reports: Impaired Vision Cardiovascular History: Reports: Hypertension Other Cardiovascular History: Aortic valve replacement. Respiratory History: Reports: Asthma Gastrointestinal History: Reports: GERD Other Gastrointestinal History: Esophageal ulcer Genitourinary History: Reports: Acute Renal Failure Musculoskeletal History: Reports: Other (See Below) Other Musculoskeletal History: right ankle surgery - Infectious Disease History Infectious Disease History: Reports: Chicken Pox - Past Surgical History Cardiovascular Surgical History: Reports: Valve Replacement Other Cardiovascular Surgeries/Procedures: 1995, 2019 Social & Family History - Caffeine Use Caffeine Use: Reports: Coffee ED ROS GENERAL - Review of Systems Review Of Systems: See Below Constitutional: Reports: Malaise, Weakness, Fatigue HEENT: Reports: No Symptoms Respiratory: Reports: No Symptoms Cardiovascular: Reports: No Symptoms Endocrine: Reports: No Symptoms GI/Abdominal: Reports: Bloody Stool, Decreased Appetite, Hematochezia. Denies: Abdominal Pain, Nausea, Vomiting Musculoskeletal: Reports: No Symptoms Skin: Reports: No Symptoms Neurological: Reports: Confusion. Denies: Headache ED EXAM, GENERAL - Physical Exam Exam: See Below Exam Limited By: No Limitations General Appearance: Moderate Distress (He looks very anemic) Eye Exam: Bilateral Eye: Normal Inspection Ears: Normal External Exam, Normal Canal, Hearing Grossly Normal, Normal TMs Nose: Normal Inspection, Normal Mucosa, No Blood Throat/Mouth: Normal Inspection, Normal Lips, Normal Gums, Normal Oropharynx, Normal Voice, No Airway Compromise Head: Atraumatic, Normocephalic Neck: Normal Inspection, Supple, Non-Tender, Full Range of Motion. No: Lymphadenopathy (R) Respiratory/Chest: No Respiratory Distress, Lungs Clear, Normal Breath Sounds Cardiovascular: Systolic Murmur, Other (Metallic sounding valve heard best on the left chest he has a murmur as well) GI/Abdominal: Normal Bowel Sounds, Soft, Tender (Vague discomfort ). No: Guarding, Rigid, Rebound Rectal (Males) Exam: Heme + Stool (Maroon-colored blood like material that is ultimately heme positive) Extremities: Normal Inspection Skin Exam: Warm, Dry. No: Normal Color Lymphatic: No Adenopathy #1 Interpretation EKG Date: 01/06/21 Rhythm: Other (A. fib versus atrial rhythm) Rate (Beats/Min): 74 P-Wave: Absent QRS: Other (Interventricular conduction delay slightly higher than his last EKG at 165 it was 125 earlier this year) ST-T: Other (Nonspecific nondiagnostic changes) QT: Prolonged Comparison: Change From Previous EKG (Longer QRS duration) EKG Interpretation Comments: Abnormal EKG Course - Vital Signs Last Recorded V/S: Last Vital Signs Temp 35.6 C L 01/06/21 15:55 Pulse 95 01/06/21 15:55 Resp 24 H 01/06/21 15:18 BP 93/57 L 01/06/21 15:55 Pulse Ox 94 L 01/06/21 15:18 - Orders/Labs/Meds Orders: Active Orders 24 hr Category Date Time Status EKG Documentation Completion [RC] STAT Care 01/06/21 14:20 Active Chest 1V Frontal [CR] Stat Exams 01/06/21 14:20 Taken CORONAVIRUS COVID-19 FIDELIA [MOLEC] Stat Lab 01/06/21 15:35 Received RED BLOOD CELLS LP [BBK] Stat Lab 01/06/21 14:35 Results TYPE AND SCREEN [BBK] Stat Lab 01/06/21 14:35 Results Transfuse Red Blood Cells [COMM] Stat Oth 01/06/21 14:25 Ordered Labs: Laboratory Tests 01/06/21 01/06/21 01/06/21 Range/Units 14:25 14:25 14:25 WBC 25.67 H (4.23-9.07) K/mm3 RBC 1.08 L (4.63-6.08) M/mm3 Hgb 3.4 L* D (13.7-17.5) gm/dl Hct 11.9 L (40.1-51.0) % MCV 110.2 H D (79.0-92.2) fl MCH 31.5 (25.7-32.2) pg MCHC 28.6 L (32.2-35.5) g/dl RDW Std Deviation 76.9 H (35.1-43.9) fL Plt Count 160 L D (163-337) K/mm3 MPV 11.9 (9.4-12.3) fl Neut % (Auto) 73.8 H (34.0-67.9) % Lymph % (Auto) 9.3 L (21.8-53.1) % Cass % (Auto) 10.6 (5.3-12.2) % Eos % (Auto) 0.2 L (0.8-7.0) Baso % (Auto) 0.6 (0.1-1.2) % Neut # (Auto) 18.97 H (1.78-5.38) K/mm3 Lymph # (Auto) 2.38 (1.32-3.57) K/mm3 Cass # (Auto) 2.71 H (0.30-0.82) K/mm3 Eos # (Auto) 0.04 (0.04-0.54) K/mm3 Baso # (Auto) 0.15 H (0.01-0.08) K/mm3 Manual Slide Review Abnormal smear PT > 90.0 H* D (9.7-12.0) SECONDS INR TNP Sodium 143 (136-145) mEq/L Potassium 7.5 H* D (3.5-5.1) mEq/L Chloride 106 (98-107) mEq/L Carbon Dioxide 12 L D (21-32) mEq/L Anion Gap 32.5 H (5-15) BUN 98 H D (7-18) mg/dL Creatinine 7.8 H (0.7-1.3) mg/dL Est Cr Clr Drug Dosing TNP Estimated GFR (MDRD) 7 (>60) mL/min BUN/Creatinine Ratio 12.6 L (14-18) Glucose 100 H (70-99) mg/dL Calcium 8.2 L (8.5-10.1) mg/dL Total Bilirubin 0.7 (0.2-1.0) mg/dL AST 21 (15-37) U/L ALT 17 (16-63) U/L Alkaline Phosphatase 75 (46-116) U/L Total Protein 4.7 L (6.4-8.2) g/dl Albumin 2.2 L (3.4-5.0) g/dl Globulin 2.5 gm/dL Albumin/Globulin Ratio 0.9 L (1-2) Blood Type Gel Antibody Screen Crossmatch 01/06/21 01/06/21 Range/Units 14:35 16:13 WBC (4.23-9.07) K/mm3 RBC (4.63-6.08) M/mm3 Hgb 5.2 L* D (13.7-17.5) gm/dl Hct 17.8 L (40.1-51.0) % MCV (79.0-92.2) fl MCH (25.7-32.2) pg MCHC (32.2-35.5) g/dl RDW Std Deviation (35.1-43.9) fL Plt Count (163-337) K/mm3 MPV (9.4-12.3) fl Neut % (Auto) (34.0-67.9) % Lymph % (Auto) (21.8-53.1) % Cass % (Auto) (5.3-12.2) % Eos % (Auto) (0.8-7.0) Baso % (Auto) (0.1-1.2) % Neut # (Auto) (1.78-5.38) K/mm3 Lymph # (Auto) (1.32-3.57) K/mm3 Cass # (Auto) (0.30-0.82) K/mm3 Eos # (Auto) (0.04-0.54) K/mm3 Baso # (Auto) (0.01-0.08) K/mm3 Manual Slide Review PT (9.7-12.0) SECONDS INR Sodium (136-145) mEq/L Potassium (3.5-5.1) mEq/L Chloride (98-107) mEq/L Carbon Dioxide (21-32) mEq/L Anion Gap (5-15) BUN (7-18) mg/dL Creatinine (0.7-1.3) mg/dL Est Cr Clr Drug Dosing Estimated GFR (MDRD) (>60) mL/min BUN/Creatinine Ratio (14-18) Glucose (70-99) mg/dL Calcium (8.5-10.1) mg/dL Total Bilirubin (0.2-1.0) mg/dL AST (15-37) U/L ALT (16-63) U/L Alkaline Phosphatase (46-116) U/L Total Protein (6.4-8.2) g/dl Albumin (3.4-5.0) g/dl Globulin gm/dL Albumin/Globulin Ratio (1-2) Blood Type O NEGATIVE Gel Antibody Screen Negative Crossmatch See Detail Meds: Medications Discontinued Medications Generic Name Dose Route Start Last Admin Trade Name Freq PRN Reason Stop Dose Admin Calcium Gluconate 1 gm 01/06/21 15:24 Calcium Gluconate 10% 1 Gm/10 Ml Sdv IVPUSH 01/06/21 15:25 ONETIME ONE Calcium Gluconate Confirm 01/06/21 15:26 Calcium Gluconate 10% 1 Gm/10 Ml Sdv Administered 01/06/21 15:27 Dose 1 gm .ROUTE .STK-MED ONE Dextrose/Water 50 ml 01/06/21 15:25 50% Dextrose In Water 50 Ml Syringe IVPUSH 01/06/21 15:26 ASDIRECTED ONE Dextrose/Water Confirm 01/06/21 15:26 50% Dextrose In Water 50 Ml Syringe Administered 01/06/21 15:27 Dose 50 ml .ROUTE .STK-MED ONE Factor IX (Pha) 5,000 unit 01/06/21 15:49 Factor Ix Complex Human 500 Unit Vial IV 01/06/21 15:50 ONETIME ONE Dextrose/Water Confirm 01/06/21 15:53 Dextrose 5% In Water Administered 01/06/21 15:54 Dose 250 mls @ as directed .ROUTE .STK-MED ONE Phytonadione 10 mg/ Sodium 51 mls @ 100 mls/hr 01/06/21 15:54 Chloride IV 01/06/21 16:24 NOW ONE Insulin Human Regular 10 unit 01/06/21 15:25 Insulin Regular, Human 100 Units/Ml 3 Ml Vial IV 01/06/21 15:26 ONETIME ONE Insulin Human Regular Confirm 01/06/21 15:27 Insulin Regular, Human 100 Units/Ml 3 Ml Vial Administered 01/06/21 15:28 Dose 300 unit .ROUTE .STK-MED ONE Norepinephrine Bitartrate Confirm 01/06/21 15:53 Norepinephrine 4 Mg/4 Ml Sdv Administered 01/06/21 15:54 Dose 4 mg .ROUTE .STK-MED ONE Sodium Bicarbonate Confirm 01/06/21 15:26 Sodium Bicarbonate 8.4% 50 Meq/50 Ml Sdv Administered 01/06/21 15:27 Dose 50 meq .ROUTE .STK-MED ONE - Re-Assessments/Exams Free Text/Narrative Re-Assessment/Exam: 01/06/21 16:17 Initially the patient presented hypotensive lethargic. With a history of passing blood per rectum for 2 days. Patient is a dialysis patient on Coumadin. I got distracted from the patient's care with a code in the emergency room. His potassium came back at 7.5 his INR is not calculated due to the pro time being greater than 90. He was given calcium gluconate 1 g followed by 10 units of regular insulin and 25 g dextrose for his coagulopathy he was given 10 units of vitamin K and K Centra 5000 units. While awaiting for blood type that turned out to be O- he was given a unit of O- blood 3rd unit is hanging now and we anticipate sending unit #4 with the flight crew. After resuscitative efforts the patient is looks better and is more awake he confirms he is a full code. I discussed the patient's case with 1 call at [place] the case was discussed with the ICU physician who recommended getting nephrology involved this was reviewed with nephrology and ultimately Dr. Baird excepted at 15:44 from the emergency room at [facility]. The flight crew should be here shortly with her than the obvious GI bleeding no other bleeding suspected patient does not have a headache or other symptoms 01/06/21 16:25 Hemoglobin up to 5.2 01/06/21 16:28 Departure - Departure Time of Disposition: 15:44 Disposition: DC/Tfer to [facility] Clinical Impression: GI bleed, Medication induced coagulopathy, Acute hyperkalemia - Discharge Information Referrals: Tito Barr MD [Primary Care Provider] - Forms: ED Department Discharge Sepsis Event Note (ED) - Focused Exam Vital Signs: Vital Signs Temp Temp Pulse Resp BP Pulse Ox 01/06/21 15:55 35.6 C L 95 93/57 L 01/06/21 15:18 36.1 C 82 24 H 60/41 L 94 L 01/06/21 15:07 35.9 C L 74 22 H 66/30 L 94 L 01/06/21 15:06 35.8 C L 73 18 74/27 L 95 01/06/21 14:52 36.7 C 68 20 65/27 L 01/06/21 14:43 69/40 L 01/06/21 14:42 73 77/27 L 01/06/21 14:02 35.6 C L 80 20 143/113 H 90 L - My Orders Last 24 Hours: My Active Orders 01/06/21 14:20 EKG Documentation Completion [RC] STAT Chest 1V Frontal [CR] Stat 01/06/21 14:25 Transfuse Red Blood Cells [COMM] Stat 01/06/21 14:35 RED BLOOD CELLS LP [BBK] Stat TYPE AND SCREEN [BBK] Stat 01/06/21 15:35 CORONAVIRUS COVID-19 FIDELIA [MOLEC] Stat - Assessment/Plan Last 24 Hours: My Active Orders 01/06/21 14:20 EKG Documentation Completion [RC] STAT Chest 1V Frontal [CR] Stat 01/06/21 14:25 Transfuse Red Blood Cells [COMM] Stat 01/06/21 14:35 RED BLOOD CELLS LP [BBK] Stat TYPE AND SCREEN [BBK] Stat 01/06/21 15:35 CORONAVIRUS COVID-19 FIDELIA [MOLEC] Stat
[2021-01-06] MEDS ORDERED: Calcium Gluconate 10% 1 GM/10 ML SDV IVPUSH ONE (15:24)
[2021-01-06] MEDS ORDERED: 50% Dextrose in Water 50 ML Syringe IVPUSH ONE (15:25)
[2021-01-06] MEDS ORDERED: Insulin Regular, Human 100 Units/ML 3 ML Vial IV ONE (15:25)
[2021-01-06] MEDS ORDERED: Sodium Bicarbonate 8.4% 50 MEQ/50 ML SDV ONE (15:26)
[2021-01-06] MEDS ORDERED: Calcium Gluconate 10% 1 GM/10 ML SDV ONE (15:26)
[2021-01-06] MEDS ORDERED: 50% Dextrose in Water 50 ML Syringe ONE (15:26)
[2021-01-06] MEDS ORDERED: Insulin Regular, Human 100 Units/ML 3 ML Vial ONE (15:27)
[2021-01-06] MEDS ORDERED: Dextrose 5% in Water 250 ML ONE (15:53)
[2021-01-06] MEDS ORDERED: Norepinephrine 4 MG/4 ML SDV ONE (15:53)
[2021-01-06] MEDS ORDERED: Phytonadione 10 MG in Sodium Chloride 0.9% 50 ML IV ONE (15:54)
[2021-01-06] MEDS: Factor IX Complex Human 500 UNIT VIAL IV ONE ×2 (16:24→17:47)
[2021-01-06] MEDS ORDERED: Norepinephrine 4 MG in Dextrose 5% in Water 246 ML IV SCH ×2 (18:15)
[2021-01-06 18:42] VITALS: BP 93/57; PULSE 98
--- NOTE | 2021-01-07 16:18 | CR ---
Chest: Portable view of the chest was obtained. Comparison: Prior chest x-ray 07/15/20. Right-sided dialysis catheter is noted. Sternotomy wires are noted. Heart size and mediastinum are within normal limits for portable technique. Heart is less prominent than on previous exam. Lung markings are slightly increased which appear stable. No acute parenchymal change is seen. Surgical clips are seen within the right upper chest. Impression: 1. Heart size has slightly decreased from prior exam. 2. Slight increased lung markings which appear stable. 3. Nothing acute is definitely appreciated. Diagnostic code #2
== END 2021-01-06 16:50 ==
LOC: JD.ED 13:52
DX: K92.2 Gastrointestinal hemorrhage, unspecified (principal); D68.9 Coagulation defect, unspecified; T45.7X5A Adverse effect of anticoagulant antagonists, vitamin K and other coagulants, initial encounter; E87.5 Hyperkalemia; I10 Essential (primary) hypertension; J45.909 Unspecified asthma, uncomplicated; K21.9 Gastro-esophageal reflux disease without esophagitis; R94.31 Abnormal electrocardiogram [ECG] [EKG]; Z88.8 Allergy status to other drugs, medicaments and biological substances; Z79.82 Long term (current) use of aspirin; Z79.899 Other long term (current) drug therapy; Z20.822 Contact with and (suspected) exposure to COVID-19
CPT/HCPCS: 36415; 36430; 71045; 80053; 85014; 85018; 85025; 85610; 86850; 86900; 86901; 86922; 93005; 96365; 96368; 96375; 99285; C9132; J0610; J1815; J3430; J7060; P9016; U0002; 93010; 99284; J7168

== ENCOUNTER 2021-05-24 10:45 | Emergency (ER) | payer MEDICARE, BC ==
[2021-05-24] MEDS ORDERED: Albuterol/Ipratropium 3.0-0.5 MG/3 ML Neb Soln ONE (10:52)
[2021-05-24] MEDS ORDERED: Sodium Chloride 0.9% 10 ML Syringe FLUSH PRN (10:54)
[2021-05-24] MEDS ORDERED: Furosemide 40 MG/4 ML VIAL IVPUSH ONE (11:04)
[2021-05-24] MEDS ORDERED: Morphine 2 MG/ML SYRINGE IVPUSH ONE (11:05)
[2021-05-24] MEDS ORDERED: Nitroglycerin/D5W 25 MG/250 ML BOTTLE ONE (11:08)
[2021-05-24] MEDS ORDERED: Nitroglycerin/D5W 25 MG/250 ML BOTTLE IV SCH (11:15)
[2021-05-24] MEDS ORDERED: Cefepime 2 GM in Sodium Chloride 0.9% 50 ML IV ONE (11:32)
[2021-05-24] MEDS ORDERED: Norepinephrine 4 MG/4 ML SDV ONE (11:52)
[2021-05-24] MEDS ORDERED: Dextrose 5% in Water 250 ML ONE (11:53)
[2021-05-24] MEDS ORDERED: Cefepime 2 GM Vial ONE (11:58)
[2021-05-24] MEDS ORDERED: Sodium Chloride 0.9% 50 ML ONE (11:58)
--- NOTE | 2021-05-24 12:05 | CT ---
Head CT Technique: Multiple axial sections through the brain were obtained. Intravenous contrast was not utilized. Reconstructed axial and coronal images were obtained. Comparison: No prior intracranial imaging is available. Limitations: Slight motion artifact is seen from patient's breathing. Findings: Ventricles along with basal cisterns and sulci over the convexities are mildly prominent. 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 No other abnormal parenchymal densities are seen. No evidence of intracranial hemorrhage is seen. No midline shift or mass-effect is seen. Atherosclerotic calcification is seen within the left vertebral vessel and within the carotid siphon. Bone window settings were reviewed. Very minimal retention cysts are seen within both maxillary sinuses. Nothing acute is seen within the visualized mastoid sinuses or paranasal sinuses. No acute calvarial abnormality is appreciated. Impression: 1. Slight senescent change as described above. 2. No acute intracranial abnormality is appreciated. Diagnostic code #2
[2021-05-24 12:15] LABS: CORONAVIRUS COVID-19 NAA NEGATIVE (NEGATIVE)
[2021-05-24] MEDS ORDERED: Norepinephrine 4 MG in Dextrose 5% in Water 246 ML IV SCH ×4 (12:15→22:15)
--- NOTE | 2021-05-24 12:25 | CR ---
Chest: Portable view of the chest was obtained. Comparison: Prior chest x-ray of 01/06/21. Heart size and mediastinum are within normal limits. Prior sternotomy is noted. Right-sided infusion catheter is seen which is stable. Thick linear density is seen within the right lung base is seen which is most likely chronic. Lung markings are diffusely increased which are stable. Lung markings may be slightly increased from prior study and difficult to exclude superimposed bronchitis on both sides. Bone window settings were reviewed which show nothing definitely acute. Impression: 1. Multiple chronic findings as noted above. 2. Difficult to exclude mild bronchitis on both sides. Diagnostic code #3
[2021-05-24] MEDS ORDERED: Lactated Ringers 1,000 ML IV ONE (12:45)
--- NOTE | 2021-05-24 13:28 | EDM.PDOC ---
<Jose Antonio Durham Lyle - Last Filed: 05/24/21 19:12> ED HPI GENERAL MEDICAL PROBLEM - General Chief Complaint: Respiratory Problem Stated Complaint: [facility] Time Seen by Provider: 05/24/21 10:53 Source of Information: Reports: EMS, Family, Old Records, RN Notes Reviewed - History of Present Illness INITIAL COMMENTS - FREE TEXT/NARRATIVE: 66 yr old male has been brought in by EMS, unresponsive, near respiratory failure. He was found at his home or apartment unresponsive, short of breath by someone that just happened to check in on him. He is a dialysis patient, last known well yesterday afternoon. He is reported to have had dialysis yesterday afternoon and does get dialysis 3 to 4 times a week. Treatments COMMUNITY OUTREACH SPECIALIST: Reports: Oxygen - Related Data Allergies Allergy/AdvReac Type Severity Reaction Status Date / Time chlorhexidine Allergy Mild Itching Verified 01/07/21 10:43 allopurinol Allergy Unknown Cannot Verified 01/07/21 10:43 Remember amoxicillin Allergy Rash Verified 05/24/21 11:32 Home Meds: Home Meds Acetaminophen 650 mg PO Q4H PRN 05/24/21 [History] Albuterol Sulfate [Proventil Hfa] 2 puff INH Q4H 05/24/21 [History] Allopurinol [Zyloprim] 300 mg PO DAILY PRN 05/24/21 [History] Aspirin [Aspirin EC] 81 mg PO DAILY 05/24/21 [History] Calcium Acetate 667 mg PO TID 05/24/21 [History] Calcium Carbonate [Tums] 500 mg CHEW ASDIRECTED 05/24/21 [History] Calcium Carbonate [Tums] 500 mg PO TID 05/24/21 [History] Darbepoetin Yury [Aranesp] 200 mcg IV ASDIRECTED 05/24/21 [History] Heparin Sodium,Porcine/PF [Heparin 1,000 Unit/10 (100/ml)] 1,000 units INJECT ASDIRECTED 05/24/21 [History] Heparin Sodium,Porcine/PF [Heparin 1,000 Unit/10 (100/ml)] 1,700 units INJECT ASDIRECTED 05/24/21 [History] Heparin Sodium,Porcine/PF [Heparin 1,000 Unit/10 (100/ml)] 1,800 units INJECT ASDIRECTED 05/24/21 [History] Heparin Sodium,Porcine/PF [Heparin 1,000 Unit/10 (100/ml)] 3,000 units INJECT ASDIRECTED 05/24/21 [History] Magnesium Oxide 400 mg PO DAILY 05/24/21 [History] Metoprolol Tartrate 50 mg PO BEDTIME 05/24/21 [History] Metoprolol Tartrate 100 mg PO DAILY 05/24/21 [History] Midodrine 40 mg PO ASDIRECTED 05/24/21 [History] Montelukast Sodium [Singulair] 10 mg PO DAILY PRN 05/24/21 [History] Omeprazole 20 mg PO DAILY 05/24/21 [History] Ondansetron HCl/PF [Ondansetron HCl 4 mg/2 ml Vial] 4 mg IV Q4H PRN 05/24/21 [History] Sodium Ferric Gluconate Cmplex [Ferrlecit] 125 mg IV ASDIRECTED 05/24/21 [History] Warfarin Sodium 7.5 mg PO ASDIRECTED 05/24/21 [History] Warfarin [Coumadin] 10 mg PO ASDIRECTED 05/24/21 [History] paricalcitoL [Paricalcitol] 2 mcg IV ASDIRECTED 05/24/21 [History] Past Medical History HEENT History: Reports: Impaired Vision Cardiovascular History: Reports: Hypertension Other Cardiovascular History: Aortic valve replacement. Respiratory History: Reports: Asthma Gastrointestinal History: Reports: GERD Other Gastrointestinal History: Esophageal ulcer Genitourinary History: Reports: Acute Renal Failure Musculoskeletal History: Reports: Other (See Below) Other Musculoskeletal History: right ankle surgery - Infectious Disease History Infectious Disease History: Reports: Chicken Pox - Past Surgical History Cardiovascular Surgical History: Reports: Valve Replacement Other Cardiovascular Surgeries/Procedures: 1995, 2019 Social & Family History - Caffeine Use Caffeine Use: Reports: Coffee ED ROS GENERAL - Review of Systems Review Of Systems: Unable To Obtain ED EXAM, GENERAL - Physical Exam Exam: See Below General Appearance: Obtunded, Other (unresponsive verbally, does make eye contact to name) Ears: Normal External Exam Nose: Normal Inspection Throat/Mouth: Other (oral mucosa dry) Head: Atraumatic Neck: Other (No JVD at time of initial exam) Respiratory/Chest: Rhonchi (bilat), Wheezing (bilat) Cardiovascular: Irregularly Irregular GI/Abdominal: Soft, Non-Tender, Distended Extremities: Pedal Edema (moderate bilat, distal legs erythematous bilat) Neurological: Other (makes eye contact with verbal, no verbalization, withdraws feet to plantar stimulation) Skin Exam: Warm, Normal Color #1 Interpretation EKG Date: 05/24/21 Rhythm: A-Fib Rate (Beats/Min): 87 P-Wave: Absent QRS: Other (mild IVCD) ST-T: Other (t wave inversion V4-6) Course - Re-Assessments/Exams Free Text/Narrative Re-Assessment/Exam: 05/24/21 12:15. Pt came in near resp. arrest, 15 L NRB, sats 92, probable sepsis, concern for fluid overload, temp 101 on arrival, unresponsive as noted. He is a dialysis patient, is going to need transfer. Initial BP 154 systolic. Have ordered lasix 80 mg IV, morphine 2 mg IV, nitro drip. WBC 22,000, ABG's 15 L NRB 7.35, pO2 91, Pco2 47.7. 12:40. Both [facility] are on Critical care Diversion. Creat . 4.9, BUN 23. GLU 98, L Acid 4.5. Trop .915. CRP 11.3. AST 142, ALT 67, Alk phs 361, bili 4.9. Covid neg. Flu neg. CXR shows mild pul luke., no obvious infiltrate. [facility] also on critical care diversion. [facility] also cannot take this patient. Have called [facility] Transfer [facility] to ask for their assistance to place this patient. Have ordered Cefipime 2 grams IV. Because he is a dilaysis pt, concern for becoming fluid overloaded cannot give 30 ml/kg fluid bolus. 13:15. No word from transfer line. He has dropped his pressure to the 60's and 70's systolic. Nitro drip stopped. Levophed drip started. 500 fluid bolus ordered. sats 98% %. 14:40 Still no word from [facility]. BP 80's, 90's systolic, he does make eye contact when spoken his name, no speech, slight squeeze of fingers. Have dropped o2 down to 6 L NC, sats 94 %. Vancomycin 1.5 grams IV ordered. 15:000 repeat trop has gone up further, now 1.37. sats 92 to 95 %. 16:00. Checked back with [facility], still no critical care beds [place], they will keep trying. Concerned there may not be any beds available for transfer until morning. 05/24/21 16:30. Have ordered heparin bolus and drip. Still on levophed drip. sats 93 % still at the 6 L NC, 100/52. Cap refill is good. 05/24/21 18:05. State has called. There is a probable bed at [place], [place], they will call us. 18:20. Dr Esposito, Critical care, [facility], accepts patient in transfer. Will send him fixed wing, whoever can do it the quickest. 91/52. 110, 94 % room air. Still not verbalizing. Continuing with heparin drip, levophed drip. 18:45. Guardian will be coming from [place], It will be about 2 hrs until they get here. 05/24/21 19:05. Change of shift, It will still be about 90 minutes until Guardian gets here. Will transfer care to Dr Whitney. Have ordered repeat ABG's to see where he is at with resp. status for anticipated transfer. Will likely be about a 3 hr flght to [facility]. Departure - Departure Time of Disposition: 18:15 Disposition: DC/Tfer to Acute Hospital 02 Condition: Critical Clinical Impression: Non-STEMI (non-ST elevated myocardial infarction) Sepsis Qualifiers: Sepsis type: sepsis due to unspecified organism Sepsis acute organ dysfunction status: with acute organ dysfunction Severe sepsis acute organ dysfunction type: unspecified Severe sepsis shock status: with septic shock Qualified Code(s): A41.9 - Sepsis, unspecified organism - Discharge Information Referrals: PCP,None [Primary Care Provider] - Forms: ED Department Discharge Sepsis Event Note (ED) - Evaluation Sepsis Screening Result: Possible Sepsis Risk <Nnamdi Whitney - Last Filed: 05/25/21 00:55> ED RESPIRATORY PROCEDURES - Endotracheal Intubation Time of Intubation: 21:15 ET Intubation Indication: Airway Protection Preparation: Suction, Balloon Tested, BVM Set Up, Difficult Airway Equip Airway Assessment: Obese Pre-Oxygenation: Assisted with BVM, 100% FiO2 Anesthesia Meds: Etomidate Placement: Orotracheal Cords Visualized: Yes ETT Size In mm: 8 Number of Attempts: 1 Confirmed By: CO2 Indicator, Bilateral Breath Sounds, Chest Xray Tube Secured By: By RT Endotracheal Intubation Comment: Paralytics were held due to patient's body habitus and concerns about difficult intubation. - Additional/Other Procedure(s) Other (Free Text) Procedure(s): Central Venous Catheter (CVC, Central Line) Placement Indication: Intravenous access in critically ill patient A time-out was completed verifying correct patient, procedure, site, positioning, and special equipment if applicable. The patient was placed in a dependent position appropriate for central line placement based on the vein to be cannulated. The patients left neck was prepped and draped in sterile fashion. 1% Lidocaine was used to anesthetize the surrounding skin area. A triple lumen <9-Finnish> Cordis catheter was introduced into the the left internal jugular vein> using the Seldinger technique under ultrasound guidance. The catheter was threaded smoothly over the guide wire and appropriate blood return was obtained. Each lumen of the catheter was evacuated of air and flushed with sterile saline. The catheter was then sutured in place to the skin and a sterile dressing applied. Perfusion to the extremity distal to the point of catheter insertion was checked and found to be adequate. Estimated Blood Loss: 15 cc The patient tolerated the procedure well and there were no complications. Course - Vital Signs Last Recorded V/S: Last Vital Signs Temp 36.6 C 05/24/21 12:01 Pulse 102 H 05/24/21 18:49 Resp 28 H 05/24/21 18:49 BP 94/60 05/24/21 18:49 Pulse Ox 95 05/24/21 18:49 - Orders/Labs/Meds Orders: Active Orders 24 hr Category Date Time Status Insert Urinary Catheter [OM.PC] Q24H Care 05/25/21 00:00 Ordered Chest 1V Frontal [CR] Stat Exams 05/24/21 21:40 Taken Chest 1V-Tube Placement Chk NC [CR] Stat Exams 05/24/21 20:01 Taken BLOOD CULTURE [MREF] Stat Lab 05/24/21 11:07 Received BLOOD CULTURE [MREF] Stat Lab 05/24/21 11:20 Received BLOOD GAS ARTERIAL [BG] Stat Lab 05/24/21 19:25 Received Nasogastric Orogastric Tube Insertion [OM.PC] Routine Oth 05/25/21 00:00 Ordered Peripheral IV Insertion Adult [OM.PC] Stat Oth 05/24/21 10:55 Ordered Labs: Laboratory Tests 05/24/21 05/24/21 05/24/21 Range/Units 10:50 10:50 10:50 WBC 22.00 H (4.23-9.07) K/mm3 RBC 2.72 L (4.63-6.08) M/mm3 Hgb 8.4 L D (13.7-17.5) gm/dl Hct 30.9 L (40.1-51.0) % MCV 113.6 H D (79.0-92.2) fl MCH 30.9 (25.7-32.2) pg MCHC 27.2 L (32.2-35.5) g/dl RDW Std Deviation 99.0 H (35.1-43.9) fL Plt Count 144 L (163-337) K/mm3 MPV 11.6 (9.4-12.3) fl Neut % (Auto) 51.1 (34.0-67.9) % Lymph % (Auto) 32.5 (21.8-53.1) % Blackford % (Auto) 6.7 (5.3-12.2) % Eos % (Auto) 0.9 (0.8-7.0) Baso % (Auto) 3.0 H (0.1-1.2) % Neut # (Auto) 11.26 H (1.78-5.38) K/mm3 Lymph # (Auto) 7.15 H (1.32-3.57) K/mm3 Blackford # (Auto) 1.48 H (0.30-0.82) K/mm3 Eos # (Auto) 0.19 (0.04-0.54) K/mm3 Baso # (Auto) 0.65 H (0.01-0.08) K/mm3 Manual Slide Review Abnormal smear PT 27.4 H D (9.7-12.0) SECONDS INR 2.56 APTT 42.1 H (21.7-31.4) SECONDS Puncture Site ABG pH (7.35-7.45) ABG pCO2 (35.0-45.0) mmHg ABG pO2 (80.0-100.0) mmHg ABG HCO3 (22.0-26.0) meq/L ABG O2 Saturation (96.0-97.0) % ABG Base Excess (-2-2.0) VBG pH (7.30-7.40) VBG pCO2 (41-51) mmHg VBG pO2 (40-80) mmHG VBG HCO3 (22-26) meq/L VBG O2 Saturation VBG Base Excess (-4.0-2.0) A-a Gradient mmHg O2 Delivery Device Oxygen Flow Rate FiO2 (21.00-100.00) % Sodium 143 (136-145) mEq/L Potassium 4.5 D (3.5-5.1) mEq/L Chloride 103 (98-107) mEq/L Carbon Dioxide 27 D (21-32) mEq/L Anion Gap 17.5 H (5-15) BUN 23 H D (7-18) mg/dL Creatinine 4.9 H D (0.7-1.3) mg/dL Est Cr Clr Drug Dosing TNP Estimated GFR (MDRD) 12 (>60) mL/min BUN/Creatinine Ratio 4.7 L (14-18) Glucose 98 (70-99) mg/dL Lactic Acid (0.4-2.0) mmol/L Calcium 8.6 (8.5-10.1) mg/dL Total Bilirubin 4.9 H (0.2-1.0) mg/dL AST 142 H (15-37) U/L ALT 67 H (16-63) U/L Alkaline Phosphatase 361 H (46-116) U/L Troponin I 0.915 H* (0.00-0.056) ng/mL C-Reactive Protein 11.3 H* (<1.0) mg/dL Total Protein 6.2 L (6.4-8.2) g/dl Albumin 2.7 L (3.4-5.0) g/dl Globulin 3.5 gm/dL Albumin/Globulin Ratio 0.8 L (1-2) Influenza Type A RNA (NEGATIVE) Influenza Type B RNA (NEGATIVE) SARS-CoV-2 RNA (FIDELIA) (NEGATIVE) 05/24/21 05/24/21 05/24/21 Range/Units 10:58 11:06 11:07 WBC (4.23-9.07) K/mm3 RBC (4.63-6.08) M/mm3 Hgb (13.7-17.5) gm/dl Hct (40.1-51.0) % MCV (79.0-92.2) fl MCH (25.7-32.2) pg MCHC (32.2-35.5) g/dl RDW Std Deviation (35.1-43.9) fL Plt Count (163-337) K/mm3 MPV (9.4-12.3) fl Neut % (Auto) (34.0-67.9) % Lymph % (Auto) (21.8-53.1) % Blackford % (Auto) (5.3-12.2) % Eos % (Auto) (0.8-7.0) Baso % (Auto) (0.1-1.2) % Neut # (Auto) (1.78-5.38) K/mm3 Lymph # (Auto) (1.32-3.57) K/mm3 Blackford # (Auto) (0.30-0.82) K/mm3 Eos # (Auto) (0.04-0.54) K/mm3 Baso # (Auto) (0.01-0.08) K/mm3 Manual Slide Review PT (9.7-12.0) SECONDS INR APTT (21.7-31.4) SECONDS Puncture Site Lt radial ABG pH 7.35 (7.35-7.45) ABG pCO2 47.7 H (35.0-45.0) mmHg ABG pO2 91.0 (80.0-100.0) mmHg ABG HCO3 25.5 (22.0-26.0) meq/L ABG O2 Saturation 97.8 H (96.0-97.0) % ABG Base Excess 0.3 (-2-2.0) VBG pH (7.30-7.40) VBG pCO2 (41-51) mmHg VBG pO2 (40-80) mmHG VBG HCO3 (22-26) meq/L VBG O2 Saturation VBG Base Excess (-4.0-2.0) A-a Gradient 420 mmHg O2 Delivery Device Nonrebreather Oxygen Flow Rate 15.0 FiO2 80.00 (21.00-100.00) % Sodium (136-145) mEq/L Potassium (3.5-5.1) mEq/L Chloride (98-107) mEq/L Carbon Dioxide (21-32) mEq/L Anion Gap (5-15) BUN (7-18) mg/dL Creatinine (0.7-1.3) mg/dL Est Cr Clr Drug Dosing Estimated GFR (MDRD) (>60) mL/min BUN/Creatinine Ratio (14-18) Glucose (70-99) mg/dL Lactic Acid 4.9 H* (0.4-2.0) mmol/L Calcium (8.5-10.1) mg/dL Total Bilirubin (0.2-1.0) mg/dL AST (15-37) U/L ALT (16-63) U/L Alkaline Phosphatase (46-116) U/L Troponin I (0.00-0.056) ng/mL C-Reactive Protein (<1.0) mg/dL Total Protein (6.4-8.2) g/dl Albumin (3.4-5.0) g/dl Globulin gm/dL Albumin/Globulin Ratio (1-2) Influenza Type A RNA Negative (NEGATIVE) Influenza Type B RNA Negative (NEGATIVE) SARS-CoV-2 RNA (FIDELIA) Negative (NEGATIVE) 05/24/21 05/24/21 05/24/21 Range/Units 12:51 13:52 14:33 WBC (4.23-9.07) K/mm3 RBC (4.63-6.08) M/mm3 Hgb (13.7-17.5) gm/dl Hct (40.1-51.0) % MCV (79.0-92.2) fl MCH (25.7-32.2) pg MCHC (32.2-35.5) g/dl RDW Std Deviation (35.1-43.9) fL Plt Count (163-337) K/mm3 MPV (9.4-12.3) fl Neut % (Auto) (34.0-67.9) % Lymph % (Auto) (21.8-53.1) % Blackford % (Auto) (5.3-12.2) % Eos % (Auto) (0.8-7.0) Baso % (Auto) (0.1-1.2) % Neut # (Auto) (1.78-5.38) K/mm3 Lymph # (Auto) (1.32-3.57) K/mm3 Blackford # (Auto) (0.30-0.82) K/mm3 Eos # (Auto) (0.04-0.54) K/mm3 Baso # (Auto) (0.01-0.08) K/mm3 Manual Slide Review PT (9.7-12.0) SECONDS INR APTT (21.7-31.4) SECONDS Puncture Site Lt radial ABG pH 7.36 (7.35-7.45) ABG pCO2 48.2 H (35.0-45.0) mmHg ABG pO2 50.0 L (80.0-100.0) mmHg ABG HCO3 26.7 H (22.0-26.0) meq/L ABG O2 Saturation 84.3 L (96.0-97.0) % ABG Base Excess 1.6 (-2-2.0) VBG pH (7.30-7.40) VBG pCO2 (41-51) mmHg VBG pO2 (40-80) mmHG VBG HCO3 (22-26) meq/L VBG O2 Saturation VBG Base Excess (-4.0-2.0) A-a Gradient 203 mmHg O2 Delivery Device Nasal cannula Oxygen Flow Rate 6.0 FiO2 44.00 (21.00-100.00) % Sodium (136-145) mEq/L Potassium (3.5-5.1) mEq/L Chloride (98-107) mEq/L Carbon Dioxide (21-32) mEq/L Anion Gap (5-15) BUN (7-18) mg/dL Creatinine (0.7-1.3) mg/dL Est Cr Clr Drug Dosing Estimated GFR (MDRD) (>60) mL/min BUN/Creatinine Ratio (14-18) Glucose (70-99) mg/dL Lactic Acid 3.1 H* (0.4-2.0) mmol/L Calcium (8.5-10.1) mg/dL Total Bilirubin (0.2-1.0) mg/dL AST (15-37) U/L ALT (16-63) U/L Alkaline Phosphatase (46-116) U/L Troponin I 1.368 H* (0.00-0.056) ng/mL C-Reactive Protein (<1.0) mg/dL Total Protein (6.4-8.2) g/dl Albumin (3.4-5.0) g/dl Globulin gm/dL Albumin/Globulin Ratio (1-2) Influenza Type A RNA (NEGATIVE) Influenza Type B RNA (NEGATIVE) SARS-CoV-2 RNA (FIDELIA) (NEGATIVE) 05/24/21 Range/Units 20:55 WBC (4.23-9.07) K/mm3 RBC (4.63-6.08) M/mm3 Hgb (13.7-17.5) gm/dl Hct (40.1-51.0) % MCV (79.0-92.2) fl MCH (25.7-32.2) pg MCHC (32.2-35.5) g/dl RDW Std Deviation (35.1-43.9) fL Plt Count (163-337) K/mm3 MPV (9.4-12.3) fl Neut % (Auto) (34.0-67.9) % Lymph % (Auto) (21.8-53.1) % Blackford % (Auto) (5.3-12.2) % Eos % (Auto) (0.8-7.0) Baso % (Auto) (0.1-1.2) % Neut # (Auto) (1.78-5.38) K/mm3 Lymph # (Auto) (1.32-3.57) K/mm3 [place]ford # (Auto) (0.30-0.82) K/mm3 Eos # (Auto) (0.04-0.54) K/mm3 Baso # (Auto) (0.01-0.08) K/mm3 Manual Slide Review PT (9.7-12.0) SECONDS INR APTT (21.7-31.4) SECONDS Puncture Site ABG pH (7.35-7.45) ABG pCO2 (35.0-45.0) mmHg ABG pO2 (80.0-100.0) mmHg ABG HCO3 (22.0-26.0) meq/L ABG O2 Saturation (96.0-97.0) % ABG Base Excess (-2-2.0) VBG pH 7.27 L (7.30-7.40) VBG pCO2 61.8 H (41-51) mmHg VBG pO2 55.0 (40-80) mmHG VBG HCO3 27.1 H (22-26) meq/L VBG O2 Saturation 82.2 VBG Base Excess 0.2 (-4.0-2.0) A-a Gradient mmHg O2 Delivery Device Ventilator Oxygen Flow Rate FiO2 (21.00-100.00) % Sodium (136-145) mEq/L Potassium (3.5-5.1) mEq/L Chloride (98-107) mEq/L Carbon Dioxide (21-32) mEq/L Anion Gap (5-15) BUN (7-18) mg/dL Creatinine (0.7-1.3) mg/dL Est Cr Clr Drug Dosing Estimated GFR (MDRD) (>60) mL/min BUN/Creatinine Ratio (14-18) Glucose (70-99) mg/dL Lactic Acid (0.4-2.0) mmol/L Calcium (8.5-10.1) mg/dL Total Bilirubin (0.2-1.0) mg/dL AST (15-37) U/L ALT (16-63) U/L Alkaline Phosphatase (46-116) U/L Troponin I (0.00-0.056) ng/mL C-Reactive Protein (<1.0) mg/dL Total Protein (6.4-8.2) g/dl Albumin (3.4-5.0) g/dl Globulin gm/dL Albumin/Globulin Ratio (1-2) Influenza Type A RNA (NEGATIVE) Influenza Type B RNA (NEGATIVE) SARS-CoV-2 RNA (FIDELIA) (NEGATIVE) Meds: Medications Discontinued Medications Generic Name Dose Route Start Last Admin Trade Name Samir PRN Reason Stop Dose Admin Albuterol/Ipratropium Confirm 05/24/21 10:52 05/24/21 10:50 Albuterol/Ipratropium 3.0-0.5 Mg/3 Ml Neb Soln Administered 05/24/21 10:53 3 ml Dose Administration 3 ml .ROUTE .STK-MED ONE Cefepime HCl Confirm 05/24/21 11:58 05/24/21 12:07 Cefepime 2 Gm Vial Administered 05/24/21 11:59 2 gm Dose Administration 2 gm .ROUTE .STK-MED ONE Epinephrine HCl Confirm 05/24/21 21:45 05/24/21 22:10 Epinephrine 1 Mg/Ml Sdv Administered 05/24/21 21:46 Not Given Dose 1 mg .ROUTE .STK-MED ONE Etomidate 30 mg 05/24/21 22:12 05/24/21 19:40 Etomidate 2 Mg/Ml 20 Ml Sdv IVPUSH 05/24/21 22:13 30 mg ONETIME ONE Administration Fentanyl Confirm 05/24/21 20:27 05/24/21 20:37 Fentanyl 2500 Mcg/50 Ml Sdv Administered 05/24/21 20:28 Not Given Dose 2,500 mcg .ROUTE .STK-MED ONE Fentanyl 100 mcg 05/24/21 22:12 05/24/21 20:07 Fentanyl 100 Mcg/2 Ml Sdv IVPUSH 05/24/21 22:13 100 mcg ONETIME ONE Administration Furosemide 80 mg 05/24/21 11:04 05/24/21 11:18 Furosemide 40 Mg/4 Ml Vial IVPUSH 05/24/21 11:05 80 mg NOW ONE Administration Heparin Sodium (Porcine) 4,000 units 05/24/21 17:11 05/24/21 17:38 Heparin Sodium 5,000 Units/Ml Vial IVPUSH 05/24/21 17:12 4,000 units .BOLUS ONE Administration Hydrocortisone Sodium Succinate 100 mg 05/24/21 21:21 05/24/21 21:39 Hydrocortisone Sodium Succinate 100 Mg/2 Ml Sdv IVPUSH 05/24/21 21:22 100 mg ONETIME STA Administration Hydrocortisone Sodium Succinate 100 mg 05/24/21 22:24 05/24/21 21:38 Hydrocortisone Sodium Succinate 100 Mg/2 Ml Sdv IVPUSH 05/24/21 22:25 100 mg ONETIME ONE Administration Nitroglycerin/Dextrose 25 mg in 250 mls @ 3 mls/hr 05/24/21 11:15 05/24/21 11:18 Nitroglycerin 25 Mg/D5w 250 Ml IV 5 mcg/min TITRATE ARTIE 3 mls/hr Administration Protocol 5 MCG/MIN Nitroglycerin/Dextrose Confirm 05/24/21 11:08 05/24/21 11:19 Nitroglycerin 25 Mg/D5w 250 Ml Administered 05/24/21 11:09 Not Given Dose 25 mg in 250 mls @ as directed .ROUTE .STK-MED ONE Cefepime HCl 2 gm/ Sodium 50 mls @ 100 mls/hr 05/24/21 11:32 05/24/21 12:07 Chloride IV 05/24/21 12:01 100 mls/hr ONETIME ONE Administration Dextrose/Water Confirm 05/24/21 11:53 05/24/21 12:16 Dextrose 5% In Water Administered 05/24/21 11:54 Not Given Dose 250 mls @ as directed .ROUTE .STK-MED ONE Sodium Chloride Confirm 05/24/21 11:58 05/24/21 12:16 Normal Saline Administered 05/24/21 11:59 Not Given Dose 50 mls @ as directed .ROUTE .STK-MED ONE Norepinephrine Bitartrate 4 mg 250 mls @ 7.5 mls/hr 05/24/21 12:15 05/24/21 20:37 / Dextrose/Water IV Infused TITRATE ARTIE Titration Protocol 2 MCG/MIN Lactated Ringer's 1,000 mls @ 999 mls/hr 05/24/21 12:45 05/24/21 13:04 Ringers, Lactated IV 05/24/21 13:45 999 mls/hr .BOLUS ONE Administration Vancomycin HCl 1.5 gm/ Sodium 500 mls @ 250 mls/hr 05/24/21 14:17 05/24/21 14:38 Chloride IV 05/24/21 14:18 250 mls/hr ONETIME ONE Administration Heparin Sodium/Dextrose 25,000 units in 500 mls @ 20 mls/hr 05/24/21 17:15 05/24/21 17:39 Heparin 25,000 Units In D5w 500 Ml IV 9.95 units/kg/hr TITRATE ARTIE 20 mls/hr Administration Protocol 9.95 UNITS/KG/HR Sodium Chloride Confirm 05/24/21 20:06 05/24/21 20:37 Normal Saline Administered 05/24/21 20:07 Not Given Dose 500 mls @ as directed .ROUTE .STK-MED ONE Sodium Chloride Confirm 05/24/21 20:29 05/24/21 20:37 Normal Saline Administered 05/24/21 20:30 Not Given Dose 250 mls @ as directed .ROUTE .STK-MED ONE Fentanyl 2,500 mcg/ Sodium 250 mls @ 10.05 mls/hr 05/24/21 20:45 05/24/21 23:00 Chloride IV 2 mcg/kg/hr TITRATE ARTIE 20.1 mls/hr Administration Protocol 1 MCG/KG/HR Sodium Chloride Confirm 05/24/21 21:45 05/24/21 22:09 Normal Saline Administered 05/24/21 21:46 Not Given Dose 250 mls @ as directed .ROUTE .STK-MED ONE Norepinephrine Bitartrate 4 mg 250 mls @ 7.5 mls/hr 05/24/21 22:15 05/24/21 22:15 / Dextrose/Water IV 22 mcg/min TITRATE ARTIE 82.5 mls/hr Administration Protocol 2 MCG/MIN Ketamine HCl 500 mg/ Sodium 500 mls @ 25 mls/hr 05/24/21 23:57 05/24/21 20:50 Chloride IV 50 mls/hr TITRATE ARTIE Infusion Ketamine HCl Confirm 05/24/21 20:01 05/24/21 22:09 Ketamine 500 Mg/10 Ml Mdv Administered 05/24/21 20:02 Not Given Dose 500 mg .ROUTE .STK-MED ONE Ketamine HCl 100 mg 05/24/21 23:35 05/24/21 19:44 Ketamine 500 Mg/10 Ml Mdv IV 05/24/21 23:36 100 mg ONETIME ONE Administration Miscellaneous Medication 0 mg 05/24/21 22:10 05/24/21 22:17 Phenylephrine Hcl In 0.9% Nacl 1 Mg/10 Ml Syringe IVPUSH 05/24/21 22:11 Not Given ONETIME ONE Morphine Sulfate 2 mg 05/24/21 11:05 05/24/21 11:18 Morphine 2 Mg/Ml Syringe IVPUSH 05/24/21 11:06 2 mg ONETIME ONE Administration Norepinephrine Bitartrate Confirm 05/24/21 11:52 05/24/21 12:16 Norepinephrine 4 Mg/4 Ml Sdv Administered 05/24/21 11:53 Not Given Dose 4 mg .ROUTE .STK-MED ONE Phenylephrine HCl 0 mg 05/24/21 22:19 05/24/21 22:22 Phenylephrine 1% 10 Mg/Ml Sdv IV 05/24/21 22:20 20 mg ONETIME ONE Administration Rocuronium [place] 100 mg 05/24/21 22:12 05/24/21 21:32 Rocuronium 50 Mg/5 Ml Vial IVPUSH 05/24/21 22:13 100 mg ONETIME ONE Administration Sodium Chloride 10 ml 05/24/21 10:54 05/24/21 10:58 Sodium Chloride 0.9% 10 Ml Syringe FLUSH 10 ml ASDIRECTED PRN Administration Keep Vein Open - Re-Assessments/Exams Free Text/Narrative Re-Assessment/Exam: 05/24/21 21:38 Assumed care at routine shift change. I evaluated patient at bedside and while he was not hypoxic, he was minimally responsive or not answering any sort of questions. He was also tachypneic with a respiratory rate in the low 30s. Decision was made to intubate the patient. See above procedure note for description. Addition, patient demonstrating refractory hypotension despite being on adequate amount of Levophed. At this point, concerns about refractory septic shock. Patient was given dose of stress dose steroids and had a central line placed to facilitate administration of Levophed and other medications during transportation and critical illness. Initial attempts at accessing the left femoral vein were unsuccessful. However, left internal jugular vein was successfully accessed and central line was placed. In reviewing chart, laboratory studies and talking to family no obvious source of infection has been identified but patient does have a chronic indwelling tunneled catheter which could be possible source. Also possible that this is secondary to underlying pneumonia. It seems to me that this presentation is due to septic shock secondary to unidentified source at this time. Family members were in agreement with intubation and transfer to higher level of care. Also as part of the differential diagnosis were cardiac failure leading to pulmonary edema. No evidence of severe electrolyte derangement. Troponin elevation likely due to patient's underlying kidney dysfunction and demand ischemia and septic shock picture. During reexamination, extremities were warm to the touch. Fluid resuscitation was limited due to renal failure and anuria. 05/25/21 00:43 Critical Care Note - Critical Care Note Total Time (mins): 60 Comments: Critical Care Procedure Note Total critical care time: Approximately 60 minutes Due to a high probability of clinically significant, life threatening deterioration, the patient required my highest level of preparedness to intervene emergently and I personally spent this critical care time directly and personally managing the patient. This critical care time included obtaining a history; examining the patient; pulse oximetry; ordering and review of studies; arranging urgent treatment with development of a management plan; evaluation of patient's response to treatment; frequent reassessment; and, discussions with other providers. This critical care time was performed to assess and manage the high probability of imminent, life-threatening deterioration that could result in multi-organ failure. It was exclusive of separately billable procedures and treating other patients and teaching time. Sepsis Event Note (ED) - Focused Exam Vital Signs: Vital Signs Pulse Resp BP Pulse Ox 05/24/21 18:49 102 H 28 H 94/60 95 05/24/21 17:43 104 H 30 H 93/44 L 92 L 05/24/21 15:20 86/47 L 05/24/21 14:53 101 H 30 H 90/56 L 94 L 05/24/21 14:25 102 H 30 H 88/45 L 94 L 05/24/21 13:27 100 18 85/51 L 96 05/24/21 13:05 104 H 31 H 87/54 L 100 - My Orders Last 24 Hours: My Active Orders 05/24/21 20:01 Chest 1V-Tube Placement Chk NC [CR] Stat 05/24/21 21:40 Chest 1V Frontal [CR] Stat 05/25/21 00:00 Insert Urinary Catheter [OM.PC] Q24H Nasogastric Orogastric Tube Insertion [OM.PC] Routine - Assessment/Plan Last 24 Hours: My Active Orders 05/24/21 20:01 Chest 1V-Tube Placement Chk NC [CR] Stat 05/24/21 21:40 Chest 1V Frontal [CR] Stat 05/25/21 00:00 Insert Urinary Catheter [OM.PC] Q24H Nasogastric Orogastric Tube Insertion [OM.PC] Routine Assessment:: Patient was appropriately stabilized prior to transfer. See above course for additional comments. Prognosis poor for this patient due to underlying medical comorbidities and refractory septic shock. I did explain this to the family prior to transfer and they confirmed understanding. Patient does require higher level of care for further definitive management.
[2021-05-24] MEDS ORDERED: Vancomycin 1.5 GM in Sodium Chloride 0.9% 500 ML IV ONE (14:17)
[2021-05-24] MEDS ORDERED: Heparin Sodium 5,000 Units/ML Vial IVPUSH ONE (17:11)
[2021-05-24] MEDS ORDERED: Heparin Sodium/D5W 25,000 UNITS/500 ML BAG IV SCH (17:15)
[2021-05-24 18:49] VITALS: BP 94/60; PULSE 102
[2021-05-24] MEDS ORDERED: Ketamine 500 mg/10 ML MDV ONE (20:01)
[2021-05-24] MEDS ORDERED: Sodium Chloride 0.9% 500 ML ONE (20:06)
[2021-05-24] MEDS ORDERED: fentaNYL 2500 MCG/50 ML SDV ONE (20:27)
[2021-05-24] MEDS ORDERED: Sodium Chloride 0.9% 250 ML ONE ×2 (20:29→21:45)
[2021-05-24] MEDS ORDERED: fentaNYL 2,500 MCG in Sodium Chloride 0.9% 200 ML IV SCH (20:45)
[2021-05-24] MEDS ORDERED: Hydrocortisone Sodium Succinate 100 MG/2 ML SDV IVPUSH STA (21:21)
[2021-05-24] MEDS ORDERED: EPINEPHrine 1 MG/ML SDV ONE (21:45)
[2021-05-24] MEDS ORDERED: Rocuronium 50 MG/5 ML Vial IVPUSH ONE (22:12)
[2021-05-24] MEDS ORDERED: Etomidate 2 MG/ML 20 ML SDV IVPUSH ONE (22:12)
[2021-05-24] MEDS ORDERED: fentaNYL 100 MCG/2 ML SDV IVPUSH ONE (22:12)
[2021-05-24] MEDS ORDERED: Phenylephrine 1% 10 MG/ML SDV IV ONE (22:19)
[2021-05-24] MEDS ORDERED: Hydrocortisone Sodium Succinate 100 MG/2 ML SDV IVPUSH ONE (22:24)
[2021-05-24] MEDS ORDERED: Ketamine 500 mg/10 ML MDV IV ONE (23:35)
[2021-05-24] MEDS ORDERED: Ketamine 500 mg/10 ML MDV IV STA (23:57)
[2021-05-24] MEDS ORDERED: Ketamine 500 MG in Sodium Chloride 0.9% 490 ML IV SCH (23:57)
--- NOTE | 2021-05-25 10:35 | CR ---
Chest: Supine portable view of the chest was obtained. Comparison: Prior chest x-ray performed earlier on the same day (7:59 PM). Heart size and mediastinum are normal. Endotracheal tube is seen with tip lying above the diamante. Nasogastric tube is seen coursing off the inferior edge of the film. Left-sided central line is seen with tip lying near the right atrium. Heart size and mediastinum are stable. Lung markings remain stably increased. Right-sided catheter is appreciated. Impression: 1. Nasogastric tube and endotracheal tube are seen which are stable. 2. Left-sided central line is seen with tip lying in the region of the right atria. 3. Stable catheter on the right side. Stable increased lung markings are noted. Diagnostic code #3
--- NOTE | 2021-05-25 10:36 | CR ---
Chest: Portable view of the chest was obtained. Comparison: Prior chest x-ray of 05/24/21. Heart size and mediastinum are stable. Heart size is increased due to portable technique. Endotracheal tube is seen. Tip lies off the lower level of the clavicles above the diamante. Nasogastric tube is seen. Tip lies within the stomach. Right-sided dialysis catheter appears to be present. Lung markings are mildly increased and difficult to exclude superimposed bronchitis. Prior sternotomy is seen. Impression: 1. Endotracheal tube is seen. Position appears within normal limits. Nasogastric tube is seen with the tip lying within the stomach. 2. Slight increased lung markings are noted. Difficult to exclude superimposed bronchitis. Diagnostic code #3
== END 2021-05-24 22:15 ==
LOC: JD.ED 10:45
DX: A41.9 Sepsis, unspecified organism (principal); I21.4 Non-ST elevation (NSTEMI) myocardial infarction; I10 Essential (primary) hypertension; K21.9 Gastro-esophageal reflux disease without esophagitis; Z88.0 Allergy status to penicillin; Z88.8 Allergy status to other drugs, medicaments and biological substances; Z79.01 Long term (current) use of anticoagulants; Z79.899 Other long term (current) drug therapy; Z20.822 Contact with and (suspected) exposure to COVID-19
CPT/HCPCS: 0240U; 31500; 36415; 36600; 51702; 70450; 71045; 80053; 82803; 83605; 84484; 85025; 85610; 85730; 86140; 87040; 87077; 87186; 93005; 94640; 96365; 96366; 96367; 96368; 96375; 96376; 99285; J0692; J1644; J1720; J1940; J2270; J2370; J3010; J3370; J3490; J7040; J7050; J7060; J7120; J7620-GY